=== PATIENT | male | born 1975 | race Caucasian/White ===

== ENCOUNTER → 2017-12-25 08:19 | Outpatient (CLI) | payer OTHER, SELFPAY ==
[2017-12-25 08:45] LABS: Add Manual Diff / Slide Review NO; Eosinophils Percent Auto 3.3 % (2-4); Hematocrit 50.7 % (41-53); Hemoglobin 17.9 g/dL (13.5-17.5); Mean Corpuscular HGB Conc 35.4 % (30-36); Mean Corpuscular Hemoglobin 33.4 PG (26-34); Mean Corpuscular Volume 94.5 fL (80-100); Monocytes Percent Auto 9.6 % (3-14); Neutrophils Absolute Auto 4100 /uL (3000-5900); Neutrophils Percent Auto 62.1 % (50-75); Platelet Count 231 X10^3/uL (150-400); Red Blood Cell Count 5.37 X10^6/uL (4.5-5.9); Red Cell Distribution Width 12.9 % (11.6-14.8); White Blood Cell Count 6.6 X10^3/uL (4.5-11.0)
[2017-12-25 08:51] LABS: Alanine Aminotransferase 59 IU/L (21-72); Albumin 4.8 g/dL (3.5-5.0); Albumin Globulin Ratio 1.6 (1.0-2.8); Alkaline Phosphatase 97 U/L (38-126); Aspartate Aminotransferase 51 IU/L (17-59); BUN Creatinine Ratio 15.6 (6-22); Bilirubin Total 1.4 mg/dL (0.2-1.3); Blood Urea Nitrogen 14 mg/dL (9-20); Calcium 9.4 mg/dL (8.4-10.2); Carbon Dioxide 26 mmol/L (22-32); Chloride 101 mmol/L (98-107); Cholesterol 230 mg/dL (140-199); Estimated Glomerular Filt Rate > 60.0 mL/min (>60); Glucose 97 mg/dL (70-100); HDL Cholesterol 99 mg/dL (40-60); HEMOLYSIS 16 (0-50); LDL Cholesterol Calculated 102 mg/dL (<100); Potassium 4.1 mmol/L (3.4-5.1); Sodium 140 mmol/L (137-145); Total Protein 7.8 g/dL (6.3-8.2); Triglycerides 146 mg/dL (35-150)
== END ==
PROVIDERS: PCP Family Medicine; Visit Provider Family Medicine
DX: Z13.0 Encounter for screening for diseases of the blood and blood-forming organs and certain disorders involving the immune mechanism (principal); Z13.220 Encounter for screening for lipoid disorders; Z13.29 Encounter for screening for other suspected endocrine disorder
CPT/HCPCS: 36415; 80053; 80061; 84443; 85025

== ENCOUNTER → 2018-02-03 13:00 | Outpatient (CLI) | payer OTHER, SELFPAY | PROVIDERS: Family Provider Family Medicine; PCP Family Medicine | DX: Z23 Encounter for immunization (principal) | CPT/HCPCS: 90471; 90686 ==

== ENCOUNTER 2018-06-06 11:21 | Inpatient (IN) | payer OTHER, SELFPAY ==
[2018-06-06] VITALS (10 sets, daily range): BP systolic 108–153; BP diastolic 72–104; PULSE 82–118; RESP 14–24; TEMP 37.3–39.2; O2SAT 98–99; BMI 25.0; BMI 25.9
--- NOTE | 2018-06-06 12:03 | ED.ABDPAIN ---
HPI - Abdominal Pain General Chief Complaint: Abdominal Pain Stated Complaint: LOWER ABD PAIN Time Seen by Provider: 06/06/18 12:03 Source: patient Mode of arrival: ambulatory Limitations: no limitations History of Present Illness HPI narrative: Otherwise healthy 43-year-old male here for evaluation of 3-4 days of worsening abdominal pain. It is lower abdomen right lower quadrant. No prior abdominal surgeries. Has not tried anything for symptoms prior to arrival. No change in bowel habits. No urinary symptoms. Related Data Home Medications Medication Instructions Recorded Confirmed cetirizine [Zyrtec] 10 mg PO DAILY 06/06/18 06/06/18 Previous Rx's Medication Instructions Recorded omeprazole 20 mg tablet,delayed 20 mg PO DAILY #90 tab 12/31/17 release zolpidem 10 mg tablet 10 mg PO HS #30 tab 12/31/17 Allergies Allergy/AdvReac Type Severity Reaction Status Date / Time No Known Drug Allergies Allergy Verified 06/06/18 11:45 Review of Systems Constitutional Denies fever(s) Cardiovascular Denies chest pain and Denies dyspnea Respiratory Denies dyspnea Gastrointestinal Gastrointestinal: Reports abdominal pain, Denies change in bowel habits, Reports nausea and Denies vomiting Genitourinary Denies dysuria Musculoskeletal Denies myalgias and Denies arthralgias Integumentary/Breasts Denies rash Hematologic/Lymphatic Comments: Not on anticoagulation PFSH Medical History Gastroesophageal reflux disease (Chronic) Family History Father Cancer, Onset Age: 65 Social History household members: spouse and children Smoking Status: Never smoker Exam Initial Vital Signs Initial Vital Signs: Vital Signs Temperature 101.4 F H 06/06/18 11:40 Pulse Rate 118 H 06/06/18 11:40 Respiratory Rate 18 06/06/18 11:40 Blood Pressure 153/104 H 06/06/18 11:40 Pulse Oximetry 99 06/06/18 11:40 Const General: cooperative, No comfortable ( uncomfortable.), well developed, well groomed and No acute distress Orientation: alert, awake and oriented x3 HENMT Head: normal to inspection and normocephalic Resp Effort & Inspection: normal respiratory effort Auscultation: clear to auscultation bilaterally Cardio Rate: tachycardic Rhythm: regular rhythm Pulses: radial pulses present GI Inspection: distended Palpation: soft and tender ( Diffuse tenderness however mostly tender suprapubic and right lower quadrant. Tender over McBurney's point) Penis: normal penis Scrotum: scrotum normal Testes: normal and testicular lie normal Skin Lesions: no lesions Rashes: no rashes Neuro General: alert, awake and oriented x3 Extrem General: normal to inspection and capillary refill normal Psych Appearance: grossly normal and well kempt Course Orders Ordered: ED Orders 06/06/18 11:55 Complete Blood Count AUTO DIFF Stat Comprehensive Metabolic Panel Stat Lactate (Lactic Acid) Stat Lipase Stat 06/06/18 12:13 CT abdomen pelvis w con Stat 06/06/18 16:12 Consult to Discharge Planning Routine Education, smoking cessation ONGOING 06/07/18 05:00 Complete Blood Count AUTO DIFF Routine Comprehensive Metabolic Panel Routine Acetaminophen (Tylenol) 650 mg PO Q6HR PRN PRN Reason: Fever > 100.4 Enoxaparin Sodium (Lovenox) 40 mg SUBCUT DAILY LENIN Lactated Ringer's (Lactated Ringers) 1,000 mls @ 150 mls/hr IV CONT LENIN Last Admin: 06/06/18 16:57 Dose: 150 mls/hr Metronidazole (Flagyl) 500 mg in 100 mls @ 100 mls/hr IV Q6H LENIN Morphine Sulfate (Morphine [employer] Weig[employer] Operator) 30 mg in 30 mls @ 0 mls/hr IV Q8HR [facility] Last Admin: 06/06/18 16:58 Dose: 0 mls/hr Piperacillin/Tazobactam/Dextrose (Zosyn) 3.375 gm in 50 mls @ 100 mls/hr IV Q6H LENIN Ketorolac Tromethamine (Toradol) 30 mg IV Q6HR PRN PRN Reason: Pain, Moderate (4-6) Stop: 06/11/18 15:14 Naloxone HCl (Narcan) 0.2 mg IV Q2MIN PRN; Protocol PRN Reason: Opiate Reversal Ondansetron HCl (Zofran) 4 mg IV Q4HR PRN PRN Reason: Nausea And Vomiting Pantoprazole Sodium (Protonix) 40 mg IV DAILY LENIN Discontinued Medications Acetaminophen (Tylenol) 650 mg PO NOW ONE Stop: 06/06/18 12:25 Last Admin: 06/06/18 13:48 Dose: 650 mg Hydromorphone HCl (Dilaudid) 1 mg IV NOW ONE Stop: 06/06/18 13:15 Last Admin: 06/06/18 13:46 Dose: 1 mg Hydromorphone HCl (Dilaudid) 1 mg IV Q4H PRN PRN Reason: Pain, Severe (7-10) Stop: 06/06/18 16:30 Last Admin: 06/06/18 16:08 Dose: 1 mg Sodium Chloride (Normal Saline 0.9%) 1,000 mls @ 150 mls/hr IV CONT LENIN Last Infusion: 06/06/18 13:53 Dose: 0 mls/hr Infusion: 06/06/18 12:23 Dose: 1,000 mls/hr Admin: 06/06/18 12:18 Dose: 150 mls/hr Sodium Chloride (Normal Saline 0.9%) 1,000 mls @ 1,000 mls/hr IV BOLUS ONE Stop: 06/06/18 13:22 Last Infusion: 06/06/18 16:11 Dose: 150 mls/hr Infusion: 06/06/18 14:38 Dose: 150 mls/hr Admin: 06/06/18 13:54 Dose: 1,000 mls/hr Piperacillin/Tazobactam/Dextrose (Zosyn) 3.375 gm in 50 mls @ 100 mls/hr IV NOW ONE Stop: 06/06/18 13:43 Last Infusion: 06/06/18 14:22 Dose: 0 mls/hr Admin: 06/06/18 13:49 Dose: 100 mls/hr Metronidazole (Flagyl) 500 mg in 100 mls @ 100 mls/hr IV NOW ONE Stop: 06/06/18 15:54 Last Infusion: 06/06/18 16:00 Dose: 100 mls/hr Admin: 06/06/18 15:01 Dose: 100 mls/hr Ketorolac Tromethamine (Toradol) 30 mg IV NOW ONE Stop: 06/06/18 16:13 Last Admin: 06/06/18 16:58 Dose: 30 mg Morphine Sulfate (Morphine) 4 mg IV NOW ONE Stop: 06/06/18 12:12 Last Admin: 06/06/18 12:20 Dose: 4 mg Pantoprazole Sodium (Protonix) 40 mg IV NOW ONE Stop: 06/06/18 16:13 Last Admin: 06/06/18 16:58 Dose: 40 mg Vital Signs - 8 hr 06/06/18 11:40 06/06/18 13:46 06/06/18 13:48 Temperature 101.4 F H 102.2 F H 102.2 F H Pulse Rate 118 H Respiratory Rate 18 Blood Pressure 153/104 H Blood Pressure [Left Arm] Pulse Oximetry 99 06/06/18 13:50 06/06/18 14:24 06/06/18 16:09 Temperature 102.2 F H 100.9 F H 99.9 F H Pulse Rate 108 H 98 H Respiratory Rate 24 14 Blood Pressure Blood Pressure [Left Arm] 139/94 H 108/72 Pulse Oximetry 98 98 06/06/18 16:24 Temperature 100.0 F H Pulse Rate 94 H Respiratory Rate 18 Blood Pressure 134/79 Blood Pressure [Left Arm] Pulse Oximetry 98 MDM - Abdominal Pain Lab Data Attestation: I reviewed the patient's lab results. Result diagrams: 06/06/18 11:55 06/06/18 11:55 Lab Results 06/06/18 06/06/18 06/06/18 Range/Units 11:55 11:55 11:55 WBC 15.3 H (4.5-11.0) X10^3/uL RBC 4.84 (4.5-5.9) X10^6/uL Hgb 16.2 (13.5-17.5) g/dL Hct 47.0 (41-53) % MCV 97.3 (80-100) fL MCH 33.6 (26-34) PG MCHC 34.5 (30-36) % RDW 13.1 (11.6-14.8) % Plt Count 243 (150-400) X10^3/uL Neut % (Auto) 84.8 H (50-75) % Lymph % (Auto) 6.2 L (25-40) % [place] % (Auto) 8.5 (3-14) % Eos % (Auto) 0.1 L (2-4) % Baso % (Auto) 0.4 (0-2) % Neut # (Auto) 72614 H (8091-7777) /uL Lymph # (Auto) 900 L (0289-2993) /uL [place] # (Auto) 1300 H (0-900) /uL Eos # (Auto) 0 (0-450) /uL Baso # (Auto) 100 (0-100) /uL Sodium 138 (137-145) mmol/L Potassium 3.7 (3.4-5.1) mmol/L Chloride 100 (98-107) mmol/L Carbon Dioxide 25 (22-32) mmol/L BUN 11 (9-20) mg/dL Creatinine 0.90 (0.66-1.25) mg/dL Estimated GFR > 60.0 (>60) mL/min BUN/Creatinine Ratio 12.2 (6-22) Glucose 129 H (70-100) mg/dL Lactate 1.1 (0.7-2.1) mmol/L Calcium 9.4 (8.4-10.2) mg/dL Total Bilirubin 1.8 H (0.2-1.3) mg/dL AST 54 (17-59) IU/L ALT 53 (21-72) IU/L Alkaline Phosphatase 111 (38-126) U/L Total Protein 8.2 (6.3-8.2) g/dL Albumin 4.7 (3.5-5.0) g/dL Globulin 3.5 (1.7-4.1) g/dL Albumin/Globulin Ratio 1.3 (1.0-2.8) Lipase (23-300) U/L 06/06/18 Range/Units 11:55 WBC (4.5-11.0) X10^3/uL RBC (4.5-5.9) X10^6/uL Hgb (13.5-17.5) g/dL Hct (41-53) % MCV (80-100) fL MCH (26-34) PG MCHC (30-36) % RDW (11.6-14.8) % Plt Count (150-400) X10^3/uL Neut % (Auto) (50-75) % Lymph % (Auto) (25-40) % [place] % (Auto) (3-14) % Eos % (Auto) (2-4) % Baso % (Auto) (0-2) % Neut # (Auto) (8246-0435) /uL Lymph # (Auto) (4001-8851) /uL [place] # (Auto) (0-900) /uL Eos # (Auto) (0-450) /uL Baso # (Auto) (0-100) /uL Sodium (137-145) mmol/L Potassium (3.4-5.1) mmol/L Chloride (98-107) mmol/L Carbon Dioxide (22-32) mmol/L BUN (9-20) mg/dL Creatinine (0.66-1.25) mg/dL Estimated GFR (>60) mL/min BUN/Creatinine Ratio (6-22) Glucose (70-100) mg/dL Lactate (0.7-2.1) mmol/L Calcium (8.4-10.2) mg/dL Total Bilirubin (0.2-1.3) mg/dL AST (17-59) IU/L ALT (21-72) IU/L Alkaline Phosphatase (38-126) U/L Total Protein (6.3-8.2) g/dL Albumin (3.5-5.0) g/dL Globulin (1.7-4.1) g/dL Albumin/Globulin Ratio (1.0-2.8) Lipase 142 (23-300) U/L Imaging Data CT scan - abdomen: Radiologist's impression: PROCEDURE: CT ABDOMEN PELVIS W CON INDICATIONS: RLQ abdominal pain TECHNIQUE: After the administration of intravenous contrast, 5 mm thick sections acquired from the diaphragm to the symphysis. 5 mm coronal and sagittal reformats were acquired. For radiation dose reduction, the following was used: automated exposure control, adjustment of mA and/or kV according to patient size. COMPARISON: None. FINDINGS: Image quality: Excellent. ABDOMEN: Lung bases: A 3 mm pulmonary nodule is present at the right lung base. Lung bases are otherwise clear. Heart size is normal. Solid organs: Liver is normal in size and mildly hypodense suggesting fatty infiltration. Gallbladder is unremarkable. Biliary system is non dilated. Pancreas enhances normally. Spleen is normal in size and enhancement. No adrenal nodules. Kidneys demonstrate normal size and enhancement, without hydronephrosis. Peritoneum and bowel: Bowel loops demonstrate overall normal wall thickness and caliber. The appendix is thin walled and gas filled. Circumferential mucosal thickening is present with pericolonic fat stranding. A solitary diverticulum is present with adjacent pneumoperitoneum suggesting small perforation. Other scattered diverticular outpouchings are present without inflammatory change. Nodes and vessels: No retroperitoneal or mesenteric adenopathy by size criteria. Aorta and inferior vena cava are normal in size. Miscellaneous: No ventral hernias. PELVIS: Genitourinary: Bladder wall thickness is normal. Miscellaneous: No inguinal hernias or adenopathy. Bones: No suspicious bony lesions. No vertebral body compression fractures. IMPRESSION: 1. Acute perforated diverticulitis as above. No fluid collection to suggest abscess. Normal appendix. This finding was discussed with Dr. Vick 1:05 PM on 06/06/18. 2. 3 mm right pulmonary nodule. Please see followup guidelines below. In a low risk patient, no followup needed. In a high risk patient, consider 12 month followup. Note: Fleischner Society criteria for lung nodule followup. Nodule size (mm)Low-risk patientHigh-risk patient?4No follow-up neededFollow-up at 12 mo; if no change, no further follow-up>[id number] CT at 12 mo; if no change, no further follow-up needed.Initial follow-up CT at 6-12 mo, then 18-24 mo if no change. >6-8Initial follow-up CT at 6-12 mo, then 18-24 mo if no change. Initial follow-up CT at 3-6 mo, then 9-12 mo and 24 mo if no change. >8Follow-up CT at 3, 9, 24 mo. Or PET and/or biopsy.Same as for low-risk pts. Non-solid (ground-glass) or partly solid nodules may require longer follow-up to exclude indolent adenocarcinoma. Dictated by: Marta Olmstead M.D. on 06/06/2018 at 13:01 Approved by: Marta Olmstead M.D. on 06/06/2018 at 13:06 [facility] Narrative Medical decision making narrative: patient is tachycardic. Does have an elevated white blood cell count. CT scan does show perforated diverticulum. Normal appendix. He was given Zosyn and Flagyl here in the emergency department. Discussed the case with Dr. Pollock with General surgery who evaluated the patient here in the emergency department. Will admit for further evaluation and treatment. Informed the patient of the decision to admit. He expressed understanding. Also informed him of the incidental finding of the lung nodule. Informed him he needed to follow up with his primary care doctor regarding this. Patient expressed understanding and agreement with Discharge Plan Departure Patient Disposition: Admitted As Inpatient Clinical Impression: Diverticulitis of colon with perforation, Incidental pulmonary nodule Discharge Date/Time: 06/06/18 16:10 Interventions: ED Discharge Assessment Last Done: 06/06/18 16:10 Admit Date/Time: 06/06/18 15:08 Admit Provider: Sahil Pollock
--- NOTE | 2018-06-06 12:13 | DI.CT.S_ITS ---
PROCEDURE: CT ABDOMEN PELVIS W CON INDICATIONS: RLQ abdominal pain TECHNIQUE: After the administration of intravenous contrast, 5 mm thick sections acquired from the diaphragm to the symphysis. 5 mm coronal and sagittal reformats were acquired. For radiation dose reduction, the following was used: automated exposure control, adjustment of mA and/or kV according to patient size. COMPARISON: None. FINDINGS: Image quality: Excellent. ABDOMEN: Lung bases: A 3 mm pulmonary nodule is present at the right lung base. Lung bases are otherwise clear. Heart size is normal. Solid organs: Liver is normal in size and mildly hypodense suggesting fatty infiltration. Gallbladder is unremarkable. Biliary system is non dilated. Pancreas enhances normally. Spleen is normal in size and enhancement. No adrenal nodules. Kidneys demonstrate normal size and enhancement, without hydronephrosis. Peritoneum and bowel: Bowel loops demonstrate overall normal wall thickness and caliber. The appendix is thin walled and gas filled. Circumferential mucosal thickening is present with pericolonic fat stranding. A solitary diverticulum is present with adjacent pneumoperitoneum suggesting small perforation. Other scattered diverticular outpouchings are present without inflammatory change. Nodes and vessels: No retroperitoneal or mesenteric adenopathy by size criteria. Aorta and inferior vena cava are normal in size. Miscellaneous: No ventral hernias. PELVIS: Genitourinary: Bladder wall thickness is normal. Miscellaneous: No inguinal hernias or adenopathy. Bones: No suspicious bony lesions. No vertebral body compression fractures. IMPRESSION: 1. Acute perforated diverticulitis as above. No fluid collection to suggest abscess. Normal appendix. This finding was discussed with Dr. Vick 1:05 PM on 06/06/18. 2. 3 mm right pulmonary nodule. Please see followup guidelines below. In a low risk patient, no followup needed. In a high risk patient, consider 12 month followup. Note: Fleischner Society criteria for lung nodule followup. Nodule size (mm)Low-risk patientHigh-risk patient?4No follow-up neededFollow-up at 12 mo; if no change, no further follow-up>[id number] CT at 12 mo; if no change, no further follow-up needed.Initial follow-up CT at 6-12 mo, then 18-24 mo if no change. >6-8Initial follow-up CT at 6-12 mo, then 18-24 mo if no change. Initial follow-up CT at 3-6 mo, then 9-12 mo and 24 mo if no change. >8Follow-up CT at 3, 9, 24 mo. Or PET and/or biopsy.Same as for low-risk pts. Non-solid (ground-glass) or partly solid nodules may require longer follow-up to exclude indolent adenocarcinoma. Dictated by: Marta Olmstead M.D. on 06/06/2018 at 13:01 Approved by: Marta Olmstead M.D. on 06/06/2018 at 13:06
[2018-06-06] MEDS: SODIUM CHLORIDE 0.9% 1,000 ML 150 ML IV (12:18)
[2018-06-06] MEDS: MORPHINE 4 MG/ML INJ IV (12:20)
[2018-06-06 12:25] LABS: Add Manual Diff / Slide Review NO; Basophils Absolute Auto 100 /uL (0-100); Basophils Percent Auto 0.4 % (0-2); Eosinophils Absolute Auto 0 /uL (0-450); Eosinophils Percent Auto 0.1 % (2-4); Hemoglobin 16.2 g/dL (13.5-17.5); Lymphocytes Absolute Auto 900 /uL (1100-4500); Lymphocytes Percent Auto 6.2 % (25-40); Mean Corpuscular HGB Conc 34.5 % (30-36); Mean Corpuscular Hemoglobin 33.6 PG (26-34); Mean Corpuscular Volume 97.3 fL (80-100); Monocytes Absolute Auto 1300 /uL (0-900); Monocytes Percent Auto 8.5 % (3-14); Neutrophils Absolute Auto 13000 /uL (1500-7000); Neutrophils Percent Auto 84.8 % (50-75); Platelet Count 243 X10^3/uL (150-400); Red Blood Cell Count 4.84 X10^6/uL (4.5-5.9); Red Cell Distribution Width 13.1 % (11.6-14.8); White Blood Cell Count 15.3 X10^3/uL (4.5-11.0)
[2018-06-06 12:30] LABS: Lipase 142 U/L (23-300)
[2018-06-06 12:31] LABS: Alanine Aminotransferase 53 IU/L (21-72); Albumin 4.7 g/dL (3.5-5.0); Albumin Globulin Ratio 1.3 (1.0-2.8); Alkaline Phosphatase 111 U/L (38-126); Aspartate Aminotransferase 54 IU/L (17-59); BUN Creatinine Ratio 12.2 (6-22); Bilirubin Total 1.8 mg/dL (0.2-1.3); Blood Urea Nitrogen 11 mg/dL (9-20); Calcium 9.4 mg/dL (8.4-10.2); Carbon Dioxide 25 mmol/L (22-32); Chloride 100 mmol/L (98-107); Estimated Glomerular Filt Rate > 60.0 mL/min (>60); Globulin 3.5 g/dL (1.7-4.1); Glucose 129 mg/dL (70-100); HEMOLYSIS < 15 (0-50); Lactate (Lactic Acid) 1.1 mmol/L (0.7-2.1); Potassium 3.7 mmol/L (3.4-5.1); Sodium 138 mmol/L (137-145); Total Protein 8.2 g/dL (6.3-8.2)
[2018-06-06] MEDS: HYDROMORPHONE 1 MG INJ IV (13:46)
[2018-06-06] MEDS: ACETAMINOPHEN 325 MG TABLET 650 MG PO ×2 (13:48→23:53)
[2018-06-06] MEDS: PIPERACILLIN-TAZO 3.375 GM/50 ML FROZ.PIGGY IV ×2 (13:49→19:26)
[2018-06-06] MEDS: SODIUM CHLORIDE 0.9% 1,000 ML 1000 ML IV (13:54)
[2018-06-06] MEDS: metroNIDAZOLE 500 MG/100 ML PIGGYBACK 100 MG IV ×2 (15:01→21:24)
--- NOTE | 2018-06-06 15:33 | P.HP_ITS ---
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 He was at work today. He had abdominal pain for the last 4 days but because it became excruciating and he came to the emergency room as he could not stand it anymore. The pain began and remains in his midline in his pelvis suprapubic area. No dysuria or hematuria. No prior history of the symptoms. No nausea or vomiting but he did drink some liquids today. He is a bit anorexic. Has been having very small bowel movements the last 4 days. No blood per rectum. No history of abdominal operations or any cancer of the colon. The patient's father however in his 60s has cancer of the colon. The patient has never had a colonoscopy. The patient does note increased pain with ambulation or movement. The patient's pain has not increased since he has been in the emergency room. It also has not gotten any worse since his CT scan. Patient History Medical History Gastroesophageal reflux disease (Chronic) Family & Social History Safety & Behavioral: Feels Safe in Current Yes Environment Been Physically Hurt or No Threatened By a Person Tobacco & Substance use: Smoking Status Never smoker alcohol intake frequency 0-2 drinks per day Substance Use Type does not use Meds Home Medications Medication Instructions Recorded Confirmed Type omeprazole 20 mg tablet,delayed 20 mg PO DAILY #90 tab 12/31/17 06/06/18 Rx release zolpidem 10 mg tablet 10 mg PO HS #30 tab 12/31/17 06/06/18 Rx Allergies Allergy/AdvReac Type Severity Reaction Status Date / Time No Known Drug Allergies Allergy Verified 06/06/18 11:45 Review of Systems Review of Systems Patient has no double vision pain is eyes earache sore throats no cough cold or asthma. No chest pain or heart problems. No black or bloody bowel movements. No dysuria or hematuria. No seizures or blackouts. No anxiety or depression. His little trouble sleeping. No unusual bruising or bleeding. Exam Vital Signs (past 8 hours): - 06/06/18 11:40 06/06/18 13:46 06/06/18 13:48 Temperature 101.4 F H 102.2 F H 102.2 F H Pulse Rate 118 H Respiratory Rate 18 Blood Pressure 153/104 H Blood Pressure [Left Arm] Pulse Oximetry 99 06/06/18 13:50 06/06/18 14:24 Temperature 102.2 F H 100.9 F H Pulse Rate 108 H Respiratory Rate 24 Blood Pressure Blood Pressure [Left Arm] 139/94 H Pulse Oximetry 98 Oxygen Delivery Method Room Air Narrative Exam Narrative: Co Operative no apparent distress while lying still. Movement does cause some pain. His eyes are nonicteric. Conjunctiva pink. Oral mucosa is pink and moist. Teeth are intact. No open lesions in the mouth or throat. No splits in the lips. Ears without lesion. Nasal septum midline without a visible polyps. His neck is supple. I feel no nodes in the neck or supraclavicular areas. Lungs are clear to auscultation without rales or rhonchi. Heart regular rate and rhythm without murmur gallop. No heave lift or thrill. Abdomen is a bit protuberant and distended. Soft with a voluntary guarding throughout. Most tender in the lower mid abdomen. Extremities without deformity swelling or edema. 2+ tibialis posterior pulses. Patient is alert and oriented x3. Speech rate and content are appropriate. Affect is appropriate. Objective Imaging CT scan - abdomen: My impression: Patient has free air within the mesentery of the sigmoid colon with thickening and stranding in that area. There is no free air elsewhere. There is no abscess. This segment of inflamed bowel is not in contact with the bladder. Remainder the abdomen is fairly unremarkable. Labs Result Diagrams: 06/06/18 11:55 06/06/18 11:55 Labs: Laboratory Results - last 24 hr 06/06/18 06/06/18 06/06/18 11:55 11:55 11:55 WBC 15.3 H RBC 4.84 Hgb 16.2 Hct 47.0 MCV 97.3 MCH 33.6 MCHC 34.5 RDW 13.1 Plt Count 243 Neut % (Auto) 84.8 H Lymph % (Auto) 6.2 L [place] % (Auto) 8.5 Eos % (Auto) 0.1 L Baso % (Auto) 0.4 Neut # (Auto) 75683 H Lymph # (Auto) 900 L [place] # (Auto) 1300 H Eos # (Auto) 0 Baso # (Auto) 100 Sodium 138 Potassium 3.7 Chloride 100 Carbon Dioxide 25 BUN 11 Creatinine 0.90 Estimated GFR > 60.0 BUN/Creatinine Ratio 12.2 Glucose 129 H Lactate 1.1 Calcium 9.4 Total Bilirubin 1.8 H AST 54 ALT 53 Alkaline Phosphatase 111 Total Protein 8.2 Albumin 4.7 Globulin 3.5 Albumin/Globulin Ratio 1.3 Lipase 06/06/18 11:55 WBC RBC Hgb Hct MCV MCH MCHC RDW Plt Count Neut % (Auto) Lymph % (Auto) [place] % (Auto) Eos % (Auto) Baso % (Auto) Neut # (Auto) Lymph # (Auto) [place] # (Auto) Eos # (Auto) Baso # (Auto) Sodium Potassium Chloride Carbon Dioxide BUN Creatinine Estimated GFR BUN/Creatinine Ratio Glucose Lactate Calcium Total Bilirubin AST ALT Alkaline Phosphatase Total Protein Albumin Globulin Albumin/Globulin Ratio Lipase 142 Assessment & Plan Plan: Assessment/Plan Narrative: Fairly healthy patient with a history of gastroesophageal reflux disease who presents with 4 days of abdominal pain and CT findings consistent with perforated diverticulitis. He actually is more tender that I would have expected. His degree of tenderness is more suggestive of a free perforation which he does not appear to have. I am not sure why that is except maybe his delayed getting care for longer than usual. In any event I would recommend bowel rest, broad-spectrum antibiotics which have been ordered, DVT prophylaxis , and repeat labs in the morning. We will also control his pain. I have discussed all of this with him and the potential need for an operation should he either failed to provide improved or decline. I also explained that ultimately he will need a colonoscopy even if he does not come to operation because of his family history because there is also the possibility this could be a perforated malignancy. He appears to understand this. He understands this is a [place] by day evaluation that could change suddenly. All questions were answered.
[2018-06-06] MEDS: HYDROMORPHONE 2 MG INJ 1 MG IV (16:08)
--- NOTE | 2018-06-06 16:45 | PC.NURSE ---
Pt admitted to acute care from ER. Transferred via stretcher/ambulated independently to bed. Alert/oriented. Reports abdominal pain 08/26. Denies nausea. Oriented to room/call light. IV fluids changed per order, IV meds toradol/pantoprazole given and [employer] setup. Using call light appropriately for needs.
[2018-06-06] MEDS: LACTATED RINGERS 1,000 ML 150 ML IV (16:57)
[2018-06-06] MEDS: MORPHINE PCA 30 MG/30 ML PCA.VIAL IV ×2 (16:58→21:23)
[2018-06-06] MEDS: KETOROLAC 60 MG/2 ML VIAL 30 MG IV (16:58)
[2018-06-06] MEDS: PANTOPRAZOLE 40 MG VIAL IV (16:58)
[2018-06-07] VITALS (14 sets, daily range): BP systolic 116–149; BP diastolic 59–101; PULSE 83–100; RESP 16–20; TEMP 36.8–39.2; O2SAT 93–97
[2018-06-07] MEDS: PIPERACILLIN-TAZO 3.375 GM/50 ML FROZ.PIGGY IV ×4 (00:30→18:48)
--- NOTE | 2018-06-07 00:46 | PC.NURSE ---
Temp. 102.5 650 mg. of Tylenol admin. PO with sips of water. Rechecked temp. 102.3, cooling measures applied ice packs & turned thermostat down to 65 degrees. Denies any pain & no C/O nausea, will cont. POC & monitor.
[2018-06-07] MEDS: KETOROLAC 30 MG/ML VIAL IV (01:49)
[2018-06-07] MEDS: LACTATED RINGERS 1,000 ML 150 ML IV (02:34)
[2018-06-07] MEDS: metroNIDAZOLE 500 MG/100 ML PIGGYBACK 100 MG IV ×4 (02:36→20:10)
[2018-06-07] MEDS: MORPHINE PCA 30 MG/30 ML PCA.VIAL IV ×3 (05:21→20:12)
[2018-06-07 05:33] LABS: Add Manual Diff / Slide Review NO; Basophils Absolute Auto 100 /uL (0-100); Basophils Percent Auto 0.7 % (0-2); Eosinophils Absolute Auto 100 /uL (0-450); Eosinophils Percent Auto 0.9 % (2-4); Hematocrit 40.4 % (41-53); Lymphocytes Absolute Auto 1400 /uL (1100-4500); Lymphocytes Percent Auto 9.9 % (25-40); Mean Corpuscular HGB Conc 34.8 % (30-36); Mean Corpuscular Hemoglobin 33.8 PG (26-34); Mean Corpuscular Volume 97.1 fL (80-100); Monocytes Absolute Auto 1300 /uL (0-900); Monocytes Percent Auto 9.7 % (3-14); Neutrophils Absolute Auto 10900 /uL (1500-7000); Neutrophils Percent Auto 78.8 % (50-75); Platelet Count 186 X10^3/uL (150-400); Red Blood Cell Count 4.16 X10^6/uL (4.5-5.9); Red Cell Distribution Width 12.8 % (11.6-14.8); White Blood Cell Count 13.8 X10^3/uL (4.5-11.0)
[2018-06-07 05:40] LABS: Alanine Aminotransferase 39 IU/L (21-72); Albumin 3.7 g/dL (3.5-5.0); Albumin Globulin Ratio 1.2 (1.0-2.8); Alkaline Phosphatase 78 U/L (38-126); Aspartate Aminotransferase 30 IU/L (17-59); BUN Creatinine Ratio 11.1 (6-22); Blood Urea Nitrogen 10 mg/dL (9-20); Calcium 8.4 mg/dL (8.4-10.2); Carbon Dioxide 24 mmol/L (22-32); Chloride 105 mmol/L (98-107); Estimated Glomerular Filt Rate > 60.0 mL/min (>60); Glucose 104 mg/dL (70-100); HEMOLYSIS < 15 (0-50); Potassium 3.7 mmol/L (3.4-5.1); Sodium 139 mmol/L (137-145); Total Protein 6.7 g/dL (6.3-8.2)
[2018-06-07] MEDS: PANTOPRAZOLE 40 MG VIAL IV (10:23)
--- NOTE | 2018-06-07 10:58 | PM.PN.1 ---
Subjective Date Patient Seen: 06/07/18 Time Patient Seen: 10:59 Interval history: The patient is a gentleman admitted with perforated diverticulitis. The perforation is localized into the mesentery. He feels much better today than yesterday. Much of his pain is gone. He is concerned that he still running and intermittent temperature. No vomiting. Is passing flatus. No shortness of breath. Has been ambulating in the room. Exam Vital Signs (past 8 hours): - 06/07/18 05:23 06/07/18 07:35 06/07/18 10:25 Temperature 98.2 F 98.2 F 101.1 F H Pulse Rate 83 83 Respiratory Rate 16 16 Blood Pressure 129/92 H 116/78 Pulse Oximetry 95 95 Oxygen Delivery Method Room Air Narrative Exam Narrative: Co Operative pleasant gentleman in no apparent distress. His lungs clear. No rales or rhonchi. Heart regular rhythm without murmur gallop. A Little tachycardic. His abdomen is still distended but much softer. Voluntary guarding is gone. Vigorous exam reveals tenderness direct and referred to the left lower quadrant suprapubic areas. Objective Labs Result Diagrams: 06/07/18 05:09 06/07/18 05:09 Labs: Laboratory Results - last 24 hr 06/06/18 06/06/18 06/06/18 11:55 11:55 11:55 WBC 15.3 H RBC 4.84 Hgb 16.2 Hct 47.0 MCV 97.3 MCH 33.6 MCHC 34.5 RDW 13.1 Plt Count 243 Neut % (Auto) 84.8 H Lymph % (Auto) 6.2 L Woodruff % (Auto) 8.5 Eos % (Auto) 0.1 L Baso % (Auto) 0.4 Neut # (Auto) 43042 H Lymph # (Auto) 900 L Woodruff # (Auto) 1300 H Eos # (Auto) 0 Baso # (Auto) 100 Sodium 138 Potassium 3.7 Chloride 100 Carbon Dioxide 25 BUN 11 Creatinine 0.90 Estimated GFR > 60.0 BUN/Creatinine Ratio 12.2 Glucose 129 H Lactate 1.1 Calcium 9.4 Total Bilirubin 1.8 H AST 54 ALT 53 Alkaline Phosphatase 111 Total Protein 8.2 Albumin 4.7 Globulin 3.5 Albumin/Globulin Ratio 1.3 Lipase 06/06/18 06/07/18 06/07/18 11:55 05:09 05:09 WBC 13.8 H RBC 4.16 L Hgb 14.0 Hct 40.4 L MCV 97.1 MCH 33.8 MCHC 34.8 RDW 12.8 Plt Count 186 Neut % (Auto) 78.8 H Lymph % (Auto) 9.9 L Woodruff % (Auto) 9.7 Eos % (Auto) 0.9 L Baso % (Auto) 0.7 Neut # (Auto) 18157 H Lymph # (Auto) 1400 Woodruff # (Auto) 1300 H Eos # (Auto) 100 Baso # (Auto) 100 Sodium 139 Potassium 3.7 Chloride 105 Carbon Dioxide 24 BUN 10 Creatinine 0.90 Estimated GFR > 60.0 BUN/Creatinine Ratio 11.1 Glucose 104 H Lactate Calcium 8.4 Total Bilirubin 2.0 H AST 30 ALT 39 Alkaline Phosphatase 78 Total Protein 6.7 Albumin 3.7 Globulin 3.0 Albumin/Globulin Ratio 1.2 Lipase 142 Assessment & Plan Plan: Assessment/Plan Narrative: Patient with perforated diverticulitis with fever. Clinically he has improved markedly from yesterday when he was admitted. He is still having an intermittent temperature elevation to 102. We will continue Tylenol and also Toradol for now. Bilirubin is up a little bit which is probably due to the degree of sepsis. Will switch him to sugar containing fluid. Will continue broad-spectrum antibiotics and DVT prophylaxis with Lovenox. If fever persists it may be an indication of abscess or phlegmon formation in which case I will repeat his CT scan to evaluate. Patient asked that he be get Ambien to help him sleep and so we will prescribed that. He said he did not get any sleep at all last night. He felt that the Toradol alone was giving him great pain relief. Quality VTE Deep Vein Thrombosis/Pulmonary Embolism Present on Admission: No
[2018-06-07] MEDS: DEXTROSE 5%-0.45% NS 1,000 ML 150 ML IV ×2 (11:17→18:33)
[2018-06-07] MEDS: ACETAMINOPHEN 325 MG TABLET 650 MG PO (11:17)
--- NOTE | 2018-06-07 14:02 | CM.DANOTE ---
Patient is a 43 year old male who was admitted on 06/06/18 for Lower Abd Pain. Pt has REG [email or web address] for insurance and his PCP is Dr. Connolly. EMR was reviewed. Per Surgeon, pt currently not needing surgery and pt on bowel rest, IV-Abx, and pain management. SW met bedside with pt and spouse and explained role and they confirmed that they live in [facility] and pt works here at [employer] and pt is Independent with ADL's at baseline and very active and drives. Pt has no hx of HH or SNF and they have local supportive family who can assist at d/c if needed. Pt does not anticipate any SW needs at d/c currently and preference is home if possible. Plan: SW to follow closely for pt progress with bowel rest to determine if pt will require surgery prior to d/c. Preference is home with supportive family when medically stable. FRAN Dey Discharge Planning/Care Management CM Discharge Assessment Start: 06/07/18 13:52 Freq: Status: Active Protocol: Document 06/07/18 13:53 BF (Rec: 06/07/18 14:02 BF [id number]) Discharge Planning Assessment Assigned [employer] Engineer FRAN Espinoza Advance Directives? No Advance Directives on File No History Provided By Patient Significant Other Medical Record Has Patient been admitted in last 30 No days? Prior Living Arrangements House Household Members spouse children Type of transporation used prior to Drives own vehicle admit Comment Independent with ADL's at baseline Independent with ADL's Yes Is patient alert and oriented? Yes Caregiver for Another Yes: young children at home Comment Likely home pending pt's progress with bowel rest Barriers to Discharge No Discharge Plan Home Referrals Initiated None needed Whiteboard Updated in Patient Room with Yes name and ext. # of [employer] Design Engineer Review Status In Process Please Provide Date Initial DC 06/07/18 Assessment Was Performed Next Review Type Continued Stay Review
--- NOTE | 2018-06-07 15:53 | PC.NURSE ---
Patient up ad blanche in room, tolerating well. IV fluids infusing as ordered, maintaining NPO, as ordered. States pain is much improved and managed well on morphine SECURITY LEAD, 23.4mg used for dayshift as documented in JUL. at bedside. Tylenol prn for fever as ordered, patient also using ice pack prn. Continue to monitor, continue with plan of care. Call light within reach.
[2018-06-07] MEDS: ACETAMINOPHEN 325 MG TABLET 975 MG PO ×2 (17:04→23:41)
[2018-06-07] MEDS: ENOXAPARIN 40 MG/0.4 ML SYRINGE SUBCUT (17:05)
--- NOTE | 2018-06-07 22:19 | PC.NURSE ---
PATIENT IS RESTING QUIETLY IN ROOM,PAIN MANAGED WITH TRAVELING PHLEBOTOMIST
[2018-06-07] MEDS: ZOLPIDEM 5 MG TABLET 10 MG PO (23:45)
[2018-06-08] VITALS (21 sets, daily range): BP systolic 99–151; BP diastolic 68–102; PULSE 82–114; RESP 8–19; TEMP 36.6–38.4; O2SAT 91–97
--- NOTE | 2018-06-08 | DI.CT.S_ITS ---
PROCEDURE: CT ABDOMEN PELVIS W CON INDICATIONS: follow uo persistently febrile. Perforated diverticulitis TECHNIQUE: After the administration of oral and intravenous contrast, 5 mm thick sections acquired from the diaphragms to the symphysis. 5 mm thick coronal and sagittal reformats were performed. For radiation dose reduction, the following was used: automated exposure control, adjustment of mA and/or kV according to patient size. COMPARISON: [facility], CT, CT ABDOMEN PELVIS W CON, 06/06/2018, 12:37. FINDINGS: Image quality: Excellent. ABDOMEN: Lung bases: A small 3 mm nodule in the right lower lobe is unchanged compared to the recent prior study. There are increased confluent groundglass opacities within the lung bases, left greater than right. Heart size is normal. A small amount of pneumomediastinum is demonstrated within the visualized lower thorax. Solid organs: There is mild hypoattenuation of the liver consistent with fatty infiltration with relative sparing along the gallbladder fossa. Gallbladder appears within normal limits without calcified gallstones. Biliary system is non-dilated. No peripancreatic fat stranding or fluid collections. There is mild fatty atrophy of the uncinate process. No pancreatic duct dilatation no discrete mass identified. Spleen is normal in size and enhancement. No adrenal nodules. Kidneys are normal in size and enhancement, without hydronephrosis. Peritoneum and bowel: Stomach and small bowel loops are normal in caliber and wall thickness. No evidence of appendicitis. There is colonic diverticulosis with associated inflammatory fat stranding and segmental wall thickening in the sigmoid colon consistent with acute diverticulitis redemonstrated. There is interval decrease in the degree of wall thickening with persistent fat stranding and minimally increased free fluid. However, there is also increase in the amount of free air with a small to moderate amount of pneumoperitoneum demonstrated on the current study. These include a lobulated pericolonic collection adjacent to the sigmoid colon measuring up to approximately 6.5 cm and the posterior dimension by 6 cm in craniocaudal dimension by approximately 1.3 cm in width. This contains mostly gas as well as a small amount of loculated fluid suggestive of a diverticular abscess. In addition, additional foci of free air are demonstrated tracking superiorly in the right kidney and within the mesentery, along the left anterior pararenal space, and in the left posterior pararenal space. This extends into the visualized inferior mediastinum. A few small foci of retroperitoneal free air are also noted likely reflecting extension from the perineum. Nodes and vessels: No retroperitoneal or mesenteric adenopathy. Aorta and inferior vena cava are normal in caliber. Miscellaneous: No ventral hernias. PELVIS: Genitourinary: Bladder wall thickness is normal. Miscellaneous: No inguinal hernias or adenopathy. Bones: No suspicious bony lesions. No vertebral body compression fractures. IMPRESSION: 1. Perforated sigmoid diverticulitis redemonstrated with interval increase in the degree of pneumoperitoneum as well as new pneumomediastinum within the visualized lower thorax. These include loculated extraluminal gas within a lobulated diverticular abscess adjacent to the sigmoid colon. Findings discussed with Dr. Pollock at on 06/08/18 at 11:35 AM. 2. Increased ground glass opacities within the lung bases compatible with atelectasis or developing consolidation. 3. Hepatic steatosis. Dictated by: Jigar Bolden M.D. on 06/08/2018 at 11:29 Approved by: Jigar Bolden M.D. on 06/08/2018 at 11:48
--- NOTE | 2018-06-08 | PATH_ITS ---
[facility] Accession Number: [id number] . 01 Material submitted: . PORTION OF SIGMOID COLON . 02 Diagnosis: Sigmoid Colon, Segmental Resection: 1. Perforated diverticulitis with serositis. 2. Diverticulosis. 3. Negative for dysplasia and malignancy. [facility]/06/10/2018 . 02 Electronically signed: . Linda Hunt MD, Pathologist NPI- [id number] . 01 Gross description: . Received in formalin, labeled portion of sigmoid colon, is an unoriented opened segment of colon (length-9.6 cm, resection margin #1 diameter-2.6 cm, resection margin #2 diameter-2.7 cm) with attached adipose tissue (up to 2.8 cm in depth). Resection margin #1 is received stapled and #2 is opened. The serosa is burgos smooth and shiny. The mucosa is burgos with compact distorted folds containing diffuse diverticula. The resection margins are inked black. Section code: (A1) resection margin #1, longitudinal underwriting service representative sections; (A2) resection margin #2, longitudinal underwriting service representative sections; (A3-A8) underwriting service representative serial sections submitted from resection margin #1 to #2. ([id number]) /[facility] . 02 Pathologist provided ICD-10: K57.20 . 02 CPT . 819790 Performed at: 01 [facility] [address] [id number] MD Jigar Heaton MD Phone: [phone] Performed at: 02 [facility] [address] [place], [place] [id number] MD Linda Hunt MD Phone: [phone]
[2018-06-08] MEDS: DEXTROSE 5%-0.45% NS 1,000 ML 150 ML IV (01:27)
[2018-06-08] MEDS: PIPERACILLIN-TAZO 3.375 GM/50 ML FROZ.PIGGY IV ×4 (01:30→18:55)
[2018-06-08] MEDS: metroNIDAZOLE 500 MG/100 ML PIGGYBACK 100 MG IV ×4 (03:32→21:50)
[2018-06-08 05:41] LABS: Add Manual Diff / Slide Review NO; Basophils Absolute Auto 0 /uL (0-100); Basophils Percent Auto 0.4 % (0-2); Eosinophils Absolute Auto 200 /uL (0-450); Eosinophils Percent Auto 1.3 % (2-4); Hematocrit 38.5 % (41-53); Hemoglobin 13.4 g/dL (13.5-17.5); Lymphocytes Absolute Auto 1000 /uL (1100-4500); Lymphocytes Percent Auto 8.7 % (25-40); Mean Corpuscular HGB Conc 34.9 % (30-36); Mean Corpuscular Hemoglobin 33.8 PG (26-34); Mean Corpuscular Volume 96.8 fL (80-100); Monocytes Absolute Auto 900 /uL (0-900); Monocytes Percent Auto 7.7 % (3-14); Neutrophils Absolute Auto 9400 /uL (1500-7000); Neutrophils Percent Auto 81.9 % (50-75); Platelet Count 184 X10^3/uL (150-400); Red Blood Cell Count 3.98 X10^6/uL (4.5-5.9); Red Cell Distribution Width 12.6 % (11.6-14.8); White Blood Cell Count 11.5 X10^3/uL (4.5-11.0)
[2018-06-08 05:56] LABS: Alanine Aminotransferase 29 IU/L (21-72); Albumin 3.3 g/dL (3.5-5.0); Albumin Globulin Ratio 1.1 (1.0-2.8); Alkaline Phosphatase 72 U/L (38-126); Aspartate Aminotransferase 28 IU/L (17-59); Bilirubin Total 1.4 mg/dL (0.2-1.3); Bilirubin Unconjugated 0.7 mg/dL (0.0-1.1); HEMOLYSIS 43 (0-50); Total Protein 6.3 g/dL (6.3-8.2)
[2018-06-08 06:13] LABS: Procalcitonin 13.37 ng/mL (<0.5)
[2018-06-08] MEDS: MORPHINE PCA 30 MG/30 ML PCA.VIAL IV ×3 (06:51→21:53)
[2018-06-08] MEDS: ACETAMINOPHEN 325 MG TABLET 975 MG PO (07:47)
[2018-06-08] MEDS: ONDANSETRON 4 MG/2 ML INJ IV (07:49)
[2018-06-08] MEDS: ENOXAPARIN 40 MG/0.4 ML SYRINGE SUBCUT (07:52)
[2018-06-08] MEDS: PANTOPRAZOLE 40 MG VIAL IV (07:53)
--- NOTE | 2018-06-08 12:06 | PM.PREOP ---
Pre-operative Note Interval Note History & Physical reviewed/Exam performed by Physician: Yes Changes to H&P: Yes H&P completed within 30 days and has changed as indicated here:: Patient had a CT scan due to persistent fevers. This showed a large amount of air tracking in the retroperitoneum into the upper abdomen and periesophageal area. He will be taken emergently the operating room for resection. I have discussed the operation with him. We will get in laparoscopically mobilized this colon. I would probably have to open him to complete the operation based on prior experience. I may end up having to do an end colostomy or a loop ileostomy depending on the findings in the operating room and whether I feel like it is safe to so him back together. That is to complete a colon colon anastomosis. Risks of bleeding, infection, anastomotic leak, all discussed with him. Injury to the ureter also discussed. All questions answered. Due to persistent leak I do not believe this warrants delay.
[2018-06-08] MEDS: LACTATED RINGERS 1,000 ML 42 ML IV ×2 (12:33→16:04)
--- NOTE | 2018-06-08 13:28 | SUR.OPER ---
Lithotomy on padded OR bed, head on pillow, arms tucked at sides with gel padding. Legs secured in padded yellow fins stirrups.
[2018-06-08] MEDS: BUPIVACAINE 0.5% (PF) VIAL 30 ML INJ (14:26)
--- NOTE | 2018-06-08 15:25 | PC.NURSE ---
Patient was picked up by pre-op and taken to surgery urgently today. Patient was able to contact his prior to going to surgery. Belongings sent down to ICU. Report given to Asmita NAVARRO in ICU.
[2018-06-08] MEDS: ACETAMINOPHEN IV 1,000 MG/100 ML VIAL 400 MG IV (18:03)
[2018-06-08] MEDS: HYDROMORPHONE 2 MG INJ 0.5 MG IV ×5 (18:28→19:28)
--- NOTE | 2018-06-08 18:33 | PM.OP.1 ---
Operative Date/Time/Diagnoses Date of procedure: 06/08/18 Time of procedure: 18:33 Pre-op diagnosis: Perforated diverticulitis. Post-op diagnosis: same Procedure & Clinicians Procedure: Laparoscopic-assisted sigmoid colectomy with colo colo anastomosis and diverting loop ileostomy Same procedure as scheduled: Yes Indications: Perforated diverticulitis with increasing retroperitoneal air (extra colonic air) on repeat CT scan. Surgeon: Sahil Pollock Employee Benefits Director: Abilio Alejandre Click Yes if Unassisted: No Anesthesia Type: General Operative Notes Findings: Short segment of sigmoid with markedly thickened mesentery. Resection done staying very carefully away from the ureter. Due to the emergent nature of this operation patient did not receive oral antibiotics Closure Type: primary Specimen(s): other (Portion of sigmoid colon) Implants & Drains: None Applied: catheter (fleming) Estimated Blood Loss (mL): 100 Blood products transfused: none Procedure in detail: The patient was taken the operating room and placed supine the table. He underwent general endotracheal anesthesia. He was prepped and draped in the usual fashion. A catheter was placed prior to prepping. Small incision was made beneath the umbilicus and carried down under direct vision the peritoneal cavity. Stay sutures of 0 Vicryl were placed in the fascia. An Mono cannula was inserted. The abdomen was insufflated. Two additional ports were placed 1 in left lower quadrant 1 in the upper mid abdomen. A began dissecting along the attachments of the left colon freeing the colon to the level of the splenic flexure and into the transverse colon. One additional port had to be placed in the upper abdomen for retraction. The sigmoid had fairly dense adhesions to the lateral abdominal wall. This was in the area of the diverticulitis. When I reached a point where felt I had mobilized the colon adequately and could not safely continue dissection due to inflammation we removed the ports. Incision made from the umbilicus down to the suprapubic area. Exposure was gained. The area of the involved colon was as obvious. It was located in the midline and to the left of midline. I dissected the attachments of the colon from the lateral abdominal wall using blunt and sharp dissection. Identified an area of soft normal appearing colon just proximal to the inflamed area. The mesentery was opened and the intestine divided at this level with the AARON. I then dissected the mesentery inferiorly until I reached a point above the peritoneal reflexion where the colon was soft and normal. The dissection of the mesentery took place very close to the colon wall and I took this very slowly to prevent any injury to the ureter. A TA stapling device was fired across the colon distal and specimen was removed in open. There was no visible tumor. The colon appeared to have been mobilized adequately. I then created a proximal side to distal and colon anastomosis in 2 layers with an outer seromuscular 3 0 silk and an inner 3 0 Vicryl running [place] suture. The anastomosis was leak tested , there was a very small air leak which identified and sutured closed with seromuscular silks. The anastomosis was leak tested again and appeared to be intact without a leak. The pelvis was irrigated and suctioned free of fluid identified a point in the terminal ileum that easily came up to the abdominal wall at an appropriate location. A circular incision was made in the skin and carried down to the rectus. A cruciate incision was made in the anterior rectus and transverse incision in the posterior rectus that was dilated to 2 finger breaths. The terminal ileum loop was brought up through this opening. The fascia was closed with a running 1. Maxon double stranded suture. Occasional 1 Vicryl sutures were placed in a [id number] fashion along the fascial edge. The subcu was irrigated and the space eliminated with interrupted 3 0 Vicryl sh. Skin was closed with idania. The ostomy was then matured over a rigid red catheter using 3 0 Vicryl sutures in an interrupted fashion. A bag was placed and a dressing applied. The remaining 3 laparoscopic incisions were closed with interrupted 4 0 Vicryl stitch in sutures and Steri-Strips. The patient was awakened extubated and taken the recovery area in good condition. There were no apparent complications. Because the patient had received Lovenox we chose not to place a epidural catheter for pain control. Complications: none Condition: stable Disposition: PACU Plan for aftercare: To the floor
--- NOTE | 2018-06-08 18:44 | SUR.PHASEI ---
Stoma dark, beefy red, no output. Bag in place. Abd mikeg cdi.
--- NOTE | 2018-06-08 18:44 | SUR.PHASEI ---
Denied abd pain but c/o need to void. Discussed catheter present multiple times.
--- NOTE | 2018-06-08 19:26 | SUR.PHASEI ---
Report to Asmita.
--- NOTE | 2018-06-08 20:04 | SUR.PHASEI ---
Pt reporting abd pain 8/10, dozing intermittently. O2 sat mid 90s 2lnc. Pt transferred to ICU with O2, spouse present. Report to Asmita. Abd drsg cdi, scant dark pink drainage to middle bandaid, others CDI. No output to ileostomy. Schreiber patent. IV saline locked x2.
[2018-06-08] MEDS: KETOROLAC 30 MG/ML VIAL IV (20:33)
--- NOTE | 2018-06-08 21:14 | PC.NURSE ---
kenny note pt received from PACU with pain 8/10. Morphine CEMENT GUN OPERATOR set up with 2 mg loading dose given. Also gave 30 mg Toradol. Pain level now 6/10, pt able to take deep breath.
[2018-06-08] MEDS: LACTATED RINGERS 1,000 ML 125 ML IV (21:49)
[2018-06-09] VITALS (11 sets, daily range): BP systolic 128–143; BP diastolic 78–101; PULSE 71–87; RESP 15–20; TEMP 36.4–37.4; O2SAT 91–96
[2018-06-09] MEDS: PIPERACILLIN-TAZO 3.375 GM/50 ML FROZ.PIGGY IV ×4 (00:57→18:51)
[2018-06-09] MEDS: metroNIDAZOLE 500 MG/100 ML PIGGYBACK 100 MG IV ×4 (02:55→21:00)
[2018-06-09 05:34] LABS: Add Manual Diff / Slide Review NO; Basophils Absolute Auto 0 /uL (0-100); Basophils Percent Auto 0.1 % (0-2); Eosinophils Absolute Auto 0 /uL (0-450); Hematocrit 37.9 % (41-53); Lymphocytes Absolute Auto 500 /uL (1100-4500); Lymphocytes Percent Auto 4.1 % (25-40); Mean Corpuscular HGB Conc 34.2 % (30-36); Mean Corpuscular Hemoglobin 33.1 PG (26-34); Mean Corpuscular Volume 96.8 fL (80-100); Monocytes Absolute Auto 600 /uL (0-900); Monocytes Percent Auto 5.3 % (3-14); Neutrophils Absolute Auto 10700 /uL (1500-7000); Neutrophils Percent Auto 90.5 % (50-75); Platelet Count 214 X10^3/uL (150-400); Red Blood Cell Count 3.92 X10^6/uL (4.5-5.9); Red Cell Distribution Width 12.8 % (11.6-14.8); White Blood Cell Count 11.8 X10^3/uL (4.5-11.0)
[2018-06-09 05:41] LABS: Alanine Aminotransferase 28 IU/L (21-72); Albumin 3.3 g/dL (3.5-5.0); Albumin Globulin Ratio 1.1 (1.0-2.8); Alkaline Phosphatase 65 U/L (38-126); Aspartate Aminotransferase 21 IU/L (17-59); BUN Creatinine Ratio 12.5 (6-22); Blood Urea Nitrogen 10 mg/dL (9-20); Carbon Dioxide 26 mmol/L (22-32); Chloride 99 mmol/L (98-107); Estimated Glomerular Filt Rate > 60.0 mL/min (>60); Glucose 138 mg/dL (70-100); HEMOLYSIS < 15 (0-50); Potassium 3.6 mmol/L (3.4-5.1); Sodium 136 mmol/L (137-145); Total Protein 6.3 g/dL (6.3-8.2)
[2018-06-09] MEDS: MORPHINE PCA 30 MG/30 ML PCA.VIAL IV ×3 (06:17→22:55)
[2018-06-09] MEDS: LACTATED RINGERS 1,000 ML 125 ML IV ×2 (06:39→17:36)
[2018-06-09] MEDS: KETOROLAC 30 MG/ML VIAL IV ×2 (08:19→14:32)
[2018-06-09] MEDS: ENOXAPARIN 40 MG/0.4 ML SYRINGE SUBCUT (08:19)
[2018-06-09] MEDS: PANTOPRAZOLE 40 MG VIAL IV (08:19)
[2018-06-09] MEDS: ZOLPIDEM 5 MG TABLET 10 MG PO (23:33)
[2018-06-10] VITALS (12 sets, daily range): BP systolic 129–147; BP diastolic 86–102; PULSE 64–84; RESP 16–19; TEMP 36.7–37.1; O2SAT 93–97
[2018-06-10] MEDS: PIPERACILLIN-TAZO 3.375 GM/50 ML FROZ.PIGGY IV ×4 (01:04→19:03)
[2018-06-10] MEDS: metroNIDAZOLE 500 MG/100 ML PIGGYBACK 100 MG IV ×4 (02:48→21:18)
[2018-06-10] MEDS: LACTATED RINGERS 1,000 ML 125 ML IV ×2 (03:00→12:51)
[2018-06-10] MEDS: ZOLPIDEM 5 MG TABLET 10 MG PO ×2 (04:40→23:57)
[2018-06-10] MEDS: MORPHINE PCA 30 MG/30 ML PCA.VIAL 17.3 MG IV (06:24)
--- NOTE | 2018-06-10 06:41 | PC.NURSE ---
Wound Ostomy Nurse Note-Late Entry Saw Mr. Waldrop on 06/09/18. He was awake in bed with his at his side. Mr. Waldrop just got back to bed as he was up ambulating in ICU area. He is very alert and I began reviewing ostomy care with him and his whom is also a practicing nurse for a drug rehab clinic in [place]. Mr. Arora's appliance was coming off and he had a urinary pouch so I changed his pouching appliance. His stoma if moist,swollen and had some old blood clots which were easily wiped away. The stoma is deep red in color. The red forest bridge is intact and the sutures around the stoma are intact. Mr. Waldrop does have an area of induration at the 8-9:00 position and a bruise is forming. It is painful to touch. I did notify his day nurse and Dr. Pollock. Otherwise his hyun-stomal skin is intact. Mr. Waldrop is not producing gas but there was about 5 cc of serosanguenous drainage in the pouch. He has not been advanced in his diet and is only using dried mouth swabs. His abdominal incisional dressing is dry and I reinforced the corner that was covering the ostomy wafer. I gave Mr. Waldrop the [employer] New Patient Guide as well as the Oleksandr New Ileostomy Guide and Ileostomy Food Guide. I discussed food restrictions to prevent a food blockage and the importance of increased hydration. I briefly discussed the ileostomy anatomy and encouraged them to start to review the teaching materials I have left with him and reinforced that I will be teaching him daily how to care for him stoma. I will also make an appointment with his to be here during at least one session so she will learn how to change the appliance on the model and understand how to care for the ileostomy. I will return tomorrow to continue teaching.
[2018-06-10] MEDS: KETOROLAC 30 MG/ML VIAL IV ×2 (06:50→12:51)
[2018-06-10] MEDS: PANTOPRAZOLE 40 MG VIAL IV (08:43)
[2018-06-10] MEDS: ENOXAPARIN 40 MG/0.4 ML SYRINGE SUBCUT (08:43)
[2018-06-10] MEDS: MORPHINE PCA 30 MG/30 ML PCA.VIAL IV ×2 (14:31→21:19)
--- NOTE | 2018-06-10 14:49 | PC.NURSE ---
Transfer Note Patient transferred to room 229 via wheelchair with all belongings including cell phone, electronic tablet, and clothing.
[2018-06-10] MEDS: DEXTROSE 5%-0.45% NS 1,000 ML 100 ML IV (17:32)
--- NOTE | 2018-06-10 17:32 | PC.NURSE ---
Wound Ostomy Nurse Note Nelson sitting up in chair awake. Called Dr. Pollock to so he could join me for this visit. Dr. Pollock arrived and he removed the mid-line surgical dressing. Jeni are intact without any drainage. I removed the stoma appliance. The stoma is moist deep red. There is bruising in the 8-9:00 position, with some induration but not painful to touch. The bridge is still in place. I applied a 45mm Convatec moldable wafer with an adaptor and clear, non-filter pouch. Nelson is passing gas and today he burped the pouch and actually emptied the pouch. We reviewed on the stoma model how to measure the stoma, apply a two piece moldable appliance, apply a cut to fit one piece appliance as well as he used stoma paste and an erin ring to fit around a retracted stoma on the model. I showed him how to do the crusting technique as well as discussed a food blockage and how to treat a food blockage. We reviewed sick days and dehydration. I will return tomorrow around 5 pm to review teaching with his . I feel confident that Nelson will be able to manage his ostomy needs without having home health. I will review his skills tomorrow and will also assess his 's skills and confidence.
[2018-06-10] MEDS: METOCLOPRAMIDE 10 MG/2 ML INJ 5 MG IV (21:18)
--- NOTE | 2018-06-10 21:34 | PM.PNPO.1 ---
Subjective Date Patient Seen: 06/10/18 Time Patient Seen: 15:34 Interval history: Patient seen earlier today and again this afternoon with the ostomy nurse. He is feeling pretty well. He said he is passing flatus through the ostomy. He would like to have something like putting to eat. He said his stomach is a little upset. Exam Vital Signs (past 8 hours): - 06/10/18 16:24 06/10/18 17:00 06/10/18 19:10 Temperature 98.2 F Pulse Rate 74 Respiratory Rate 19 Blood Pressure 144/97 H Pulse Oximetry 97 97 95 Oxygen Delivery Method Room Air Oxygen Flow Rate 0 Narrative Exam Narrative: Lungs are clear to auscultation. Good air movement. Heart regular rate and rhythm without murmur gallop. Abdomen he looks distended but this is really his body habitus. He had a lot of intraperitoneal fat. The wounds are all intact. No cellulitis. Ostomy is a little dusky in places. But clearly viable. He has begun to put succus out. Objective Labs Result Diagrams: 06/09/18 05:01 06/09/18 05:01 Assessment & Plan Post-op Postoperative Procedures Operation Date: 06/08/18 14:30 Actual Procedures Side Surgeon p Laparoscopically Assisted Colectomy with colo-colo anastamosis Sahil Pollock MD s Colon Resection, Diverting loop Ileostomy Sahil Pollock MD Postoperative status: doing well Postoperative plan narrative: Will start to advance his diet. Continue DVT prophylaxis. Continue instructions regarding his ostomy. Quality VTE Deep Vein Thrombosis/Pulmonary Embolism Present on Admission: No
[2018-06-11] VITALS (14 sets, daily range): BP systolic 134–150; BP diastolic 85–109; PULSE 72–81; RESP 16–19; TEMP 36.5–37.3; O2SAT 94–99
[2018-06-11] MEDS: PIPERACILLIN-TAZO 3.375 GM/50 ML FROZ.PIGGY IV ×4 (01:12→19:36)
[2018-06-11] MEDS: metroNIDAZOLE 500 MG/100 ML PIGGYBACK 100 MG IV ×4 (03:00→21:03)
--- NOTE | 2018-06-11 03:40 | PC.NURSE ---
Patient requested ambien. Slept well until 0330 when he woke to void. Clear UOP, but tea colored. WEED CUTTER effective for pain at this time.
[2018-06-11 05:50] LABS: Add Manual Diff / Slide Review NO; Basophils Absolute Auto 0 /uL (0-100); Basophils Percent Auto 0.4 % (0-2); Eosinophils Absolute Auto 200 /uL (0-450); Hematocrit 37.9 % (41-53); Lymphocytes Absolute Auto 1100 /uL (1100-4500); Lymphocytes Percent Auto 15.8 % (25-40); Mean Corpuscular HGB Conc 34.3 % (30-36); Mean Corpuscular Hemoglobin 33.4 PG (26-34); Mean Corpuscular Volume 97.2 fL (80-100); Monocytes Absolute Auto 900 /uL (0-900); Monocytes Percent Auto 12.9 % (3-14); Neutrophils Absolute Auto 4700 /uL (1500-7000); Neutrophils Percent Auto 67.9 % (50-75); Platelet Count 252 X10^3/uL (150-400)
[2018-06-11 05:52] LABS: Alanine Aminotransferase 35 IU/L (21-72); Albumin 3.1 g/dL (3.5-5.0); Albumin Globulin Ratio 1.1 (1.0-2.8); Alkaline Phosphatase 76 U/L (38-126); Aspartate Aminotransferase 41 IU/L (17-59); BUN Creatinine Ratio 18.8 (6-22); Bilirubin Total 0.7 mg/dL (0.2-1.3); Blood Urea Nitrogen 15 mg/dL (9-20); Calcium 7.8 mg/dL (8.4-10.2); Carbon Dioxide 30 mmol/L (22-32); Chloride 98 mmol/L (98-107); Estimated Glomerular Filt Rate > 60.0 mL/min (>60); Globulin 2.9 g/dL (1.7-4.1); Glucose 109 mg/dL (70-100); HEMOLYSIS < 15 (0-50); Potassium 2.8 mmol/L (3.4-5.1); Sodium 136 mmol/L (137-145)
[2018-06-11] MEDS: METOCLOPRAMIDE 10 MG/2 ML INJ 5 MG IV ×3 (06:40→22:15)
[2018-06-11] MEDS: DEXTROSE 5%-0.45% NS 1,000 ML 100 ML IV ×2 (06:43→07:31)
[2018-06-11] MEDS: MORPHINE PCA 30 MG/30 ML PCA.VIAL IV ×3 (06:44→22:16)
[2018-06-11] MEDS: PANTOPRAZOLE 40 MG VIAL IV (10:35)
[2018-06-11] MEDS: ENOXAPARIN 40 MG/0.4 ML SYRINGE SUBCUT (10:36)
[2018-06-11] MEDS: POTASSIUM CHLORIDE 40 MEQ in SODIUM CHLORIDE 0.9% 500 ML 130 ML IV (14:00)
--- NOTE | 2018-06-11 15:20 | CM.DPNOTE ---
Spoke w/ Gemma Frias, Ostomy and Wound care Nurse. She will be visiting pt and spouse this evening to provide teaching to spouse, she is an RN. Gemma feels pt will DC home w/no barriers and he and spouse can handle new ostomy care, no need for HH at this time. Following closely in case DC needs or concerns arise. JW
--- NOTE | 2018-06-11 17:08 | PM.PNPO.1 ---
Subjective Date Patient Seen: 06/11/18 Time Patient Seen: 17:08 Interval history: The patient feels pretty well today. He did take a shower but had some leaking from his ostomy. Has been ambulating. Peeing a lot. Urine is pretty light yellow. Exam Vital Signs (past 8 hours): - 06/11/18 09:15 06/11/18 11:20 06/11/18 14:32 Temperature 98.0 F Pulse Rate 79 Respiratory Rate 18 Blood Pressure 136/93 H Pulse Oximetry 95 96 96 06/11/18 16:48 Temperature 98.1 F Pulse Rate 81 Respiratory Rate 19 Blood Pressure 150/89 H Pulse Oximetry 96 Oxygen Delivery Method Room Air Oxygen Flow Rate 0 Narrative Exam Narrative: Operative. Breathing fine. Abdomen a little distended looking. Ostomy is viable. Objective Labs Result Diagrams: 06/11/18 05:09 06/11/18 05:09 Labs: Laboratory Results - last 24 hr 06/11/18 06/11/18 05:09 05:09 WBC 7.0 RBC 3.90 L Hgb 13.0 L Hct 37.9 L MCV 97.2 MCH 33.4 MCHC 34.3 RDW 13.0 Plt Count 252 Neut % (Auto) 67.9 Lymph % (Auto) 15.8 L [place] % (Auto) 12.9 Eos % (Auto) 3.0 Baso % (Auto) 0.4 Neut # (Auto) 4700 Lymph # (Auto) 1100 [place] # (Auto) 900 Eos # (Auto) 200 Baso # (Auto) 0 Sodium 136 L Potassium 2.8 L Chloride 98 Carbon Dioxide 30 BUN 15 Creatinine 0.80 Estimated GFR > 60.0 BUN/Creatinine Ratio 18.8 Glucose 109 H Calcium 7.8 L Total Bilirubin 0.7 AST 41 ALT 35 Alkaline Phosphatase 76 Total Protein 6.0 L Albumin 3.1 L Globulin 2.9 Albumin/Globulin Ratio 1.1 Assessment & Plan Post-op Postoperative Procedures Operation Date: 06/08/18 14:30 Actual Procedures Side Surgeon p Laparoscopically Assisted Colectomy with colo-colo anastamosis Sahil Pollock MD s Colon Resection, Diverting loop Ileostomy Sahil Pollock MD Postoperative status: doing well Postoperative status narrative: Potassium is low. Replacing with IV and p.o.. Decreasing IV fluids. Advancing diet. Check procalcitonin. Quality VTE Deep Vein Thrombosis/Pulmonary Embolism Present on Admission: No
--- NOTE | 2018-06-11 17:11 | P.PN_ITS ---
Subjective Date Patient Seen: 06/11/18 Time Patient Seen: 17:08 Interval history: The patient feels pretty well today. He did take a shower but had some leaking from his ostomy. Has been ambulating. Peeing a lot. Urine is pretty light yellow. Exam Vital Signs (past 8 hours): - 06/11/18 09:15 06/11/18 11:20 06/11/18 14:32 Temperature 98.0 F Pulse Rate 79 Respiratory Rate 18 Blood Pressure 136/93 H Pulse Oximetry 95 96 96 06/11/18 16:48 Temperature 98.1 F Pulse Rate 81 Respiratory Rate 19 Blood Pressure 150/89 H Pulse Oximetry 96 Oxygen Delivery Method Room Air Oxygen Flow Rate 0 Narrative Exam Narrative: Operative. Breathing fine. Abdomen a little distended looking. Ostomy is viable. Objective Labs Result Diagrams: 06/11/18 05:09 06/11/18 05:09 Labs: Laboratory Results - last 24 hr 06/11/18 06/11/18 05:09 05:09 WBC 7.0 RBC 3.90 L Hgb 13.0 L Hct 37.9 L MCV 97.2 MCH 33.4 MCHC 34.3 RDW 13.0 Plt Count 252 Neut % (Auto) 67.9 Lymph % (Auto) 15.8 L [place] % (Auto) 12.9 Eos % (Auto) 3.0 Baso % (Auto) 0.4 Neut # (Auto) 4700 Lymph # (Auto) 1100 [place] # (Auto) 900 Eos # (Auto) 200 Baso # (Auto) 0 Sodium 136 L Potassium 2.8 L Chloride 98 Carbon Dioxide 30 BUN 15 Creatinine 0.80 Estimated GFR > 60.0 BUN/Creatinine Ratio 18.8 Glucose 109 H Calcium 7.8 L Total Bilirubin 0.7 AST 41 ALT 35 Alkaline Phosphatase 76 Total Protein 6.0 L Albumin 3.1 L Globulin 2.9 Albumin/Globulin Ratio 1.1 Assessment & Plan Post-op Postoperative Procedures Operation Date: 06/08/18 14:30 Actual Procedures Side Surgeon p Laparoscopically Assisted Colectomy with colo-colo anastamosis Sahil Pollock MD s Colon Resection, Diverting loop Ileostomy Sahil Pollock MD Postoperative status: doing well Postoperative status narrative: Potassium is low. Replacing with IV and p.o.. Decreasing IV fluids. Advancing diet. Check procalcitonin. Quality VTE Deep Vein Thrombosis/Pulmonary Embolism Present on Admission: No
--- NOTE | 2018-06-11 18:13 | PC.NURSE ---
Wound Ostomy Nursing Note Nelson awake in bed with his at his side. His Zoey is here to learn how to place an appliance on the stoma model and learn about stomal care. She correctly applied a [employer] moldable two piece pouching appliance and a one piece cut to fit. We reviewed and did the crusting technique and reviewed stoma powder and paste and erin rings. We reviewed the stoma anatomy as well as how to prevent a food blockage and what to do if he has a food blockage or the flu. Zoey verbalized understanding and demonstrated proper technique. Nelson's stoma is moist, beefy red, slightly edematous. The bridge is in place. I will be back tomorrow to help Nelson change his appliance. Nelson and Zoey feel that they need a home health nurse to continue teaching and care when he is discharged. I will speak to care management tomorrow.
[2018-06-11] MEDS: MAG HYDROX/ALUM/SIMETH 30 ML UDC PO (20:09)
[2018-06-12] VITALS (11 sets, daily range): BP systolic 132–146; BP diastolic 86–106; PULSE 75–90; RESP 16–18; TEMP 36.8–37.3; O2SAT 94–98
[2018-06-12] MEDS: PIPERACILLIN-TAZO 3.375 GM/50 ML FROZ.PIGGY IV ×4 (00:43→20:22)
[2018-06-12] MEDS: ZOLPIDEM 5 MG TABLET 10 MG PO (03:09)
[2018-06-12] MEDS: metroNIDAZOLE 500 MG/100 ML PIGGYBACK 100 MG IV ×4 (03:09→21:06)
[2018-06-12 06:03] LABS: Add Manual Diff / Slide Review NO; BUN Creatinine Ratio 11.4 (6-22); Basophils Absolute Auto 0 /uL (0-100); Basophils Percent Auto 0.3 % (0-2); Blood Urea Nitrogen 8 mg/dL (9-20); Carbon Dioxide 29 mmol/L (22-32); Chloride 100 mmol/L (98-107); Eosinophils Absolute Auto 200 /uL (0-450); Eosinophils Percent Auto 2.5 % (2-4); Estimated Glomerular Filt Rate > 60.0 mL/min (>60); Glucose 104 mg/dL (70-100); HEMOLYSIS < 15 (0-50); Hematocrit 37.4 % (41-53); Hemoglobin 12.8 g/dL (13.5-17.5); Lymphocytes Absolute Auto 1100 /uL (1100-4500); Lymphocytes Percent Auto 11.1 % (25-40); Magnesium 2.2 mg/dL (1.6-2.3); Mean Corpuscular HGB Conc 34.3 % (30-36); Mean Corpuscular Hemoglobin 33.3 PG (26-34); Monocytes Absolute Auto 1000 /uL (0-900); Monocytes Percent Auto 10.6 % (3-14); Neutrophils Absolute Auto 7300 /uL (1500-7000); Neutrophils Percent Auto 75.5 % (50-75); Platelet Count 273 X10^3/uL (150-400); Potassium 3.6 mmol/L (3.4-5.1); Red Blood Cell Count 3.85 X10^6/uL (4.5-5.9); Red Cell Distribution Width 13.2 % (11.6-14.8); Sodium 137 mmol/L (137-145); White Blood Cell Count 9.6 X10^3/uL (4.5-11.0)
[2018-06-12 06:15] LABS: Procalcitonin 1.58 ng/mL (<0.5)
[2018-06-12] MEDS: METOCLOPRAMIDE 10 MG/2 ML INJ 5 MG IV ×3 (06:26→21:27)
[2018-06-12] MEDS: MORPHINE PCA 30 MG/30 ML PCA.VIAL IV (06:29)
[2018-06-12] MEDS: PANTOPRAZOLE 40 MG VIAL IV (10:05)
[2018-06-12] MEDS: ENOXAPARIN 40 MG/0.4 ML SYRINGE SUBCUT (10:06)
[2018-06-12] MEDS: POTASSIUM CHLORIDE 20 MEQ TAB PO ×2 (10:06→17:22)
[2018-06-12] MEDS: OXYCODONE/ACETAMINOPHEN 5/325 TABLET 1 TAB PO (14:12)
--- NOTE | 2018-06-12 16:05 | PC.NURSE ---
day shift pt transitioned from DIRECTOR OF INFECTION PREVENTION to percocet. DIRECTOR OF INFECTION PREVENTION d/c'd. He used 19.9 mg this shift. tolerating diet without issue. blisters on abd, aware.
--- NOTE | 2018-06-12 17:10 | PC.NURSE ---
Wound Ostomy Nurse Note Nelson awake, he was ready to change his pouching appliance with me. He emptied his pouch and then removed the wafer. He re-applied a [employer] moldable 57mm wafer and pouch. I used a little stoma paste at the 11:00 position. Nelson did a very good job with removal of the appliance, cleaning and replacing the appliance. I gave him several supplies to use at home and hopefully home health will be seeing him this weekend or early next week. The stoma is moist, deep red with yellow most likely adipose tissue at the 5-7:00 position. The bridge is in place. His mid-line idania are intact. He has some bruising near the stoma in the 8:00 position as well as his left lower abdomen. I will see him post-op next week.
[2018-06-12] MEDS: OXYCODONE/ACETAMINOPHEN 5/325 TABLET 2 TAB PO (20:30)
[2018-06-13] MEDS: PIPERACILLIN-TAZO 3.375 GM/50 ML FROZ.PIGGY IV ×2 (00:55→06:38)
[2018-06-13 01:00] VITALS: O2SAT 96
[2018-06-13] MEDS: ZOLPIDEM 5 MG TABLET 10 MG PO (01:01)
[2018-06-13 01:26] VITALS: BP 130/87; PULSE 71; RESP 16; TEMP 36.8; O2SAT 96
[2018-06-13] MEDS: metroNIDAZOLE 500 MG/100 ML PIGGYBACK 100 MG IV ×2 (03:00→08:26)
[2018-06-13 05:00] VITALS: BP 141/95; PULSE 92; RESP 16; TEMP 37; O2SAT 96
[2018-06-13] MEDS: OXYCODONE/ACETAMINOPHEN 5/325 TABLET 1 TAB PO ×2 (05:31→09:59)
[2018-06-13] MEDS: METOCLOPRAMIDE 10 MG/2 ML INJ 5 MG IV (05:32)
[2018-06-13 08:00] VITALS: BP 128/86; PULSE 77; RESP 18; TEMP 37; O2SAT 97
[2018-06-13] MEDS: PANTOPRAZOLE 40 MG VIAL IV (08:26)
[2018-06-13] MEDS: ENOXAPARIN 40 MG/0.4 ML SYRINGE SUBCUT (08:26)
[2018-06-13] MEDS: POTASSIUM CHLORIDE 20 MEQ TAB PO (08:44)
[2018-06-13 09:00] VITALS: O2SAT 96
--- NOTE | 2018-06-13 09:02 | P.DS_ITS ---
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 He was at work today. He had abdominal pain for the last 4 days but because it became excruciating and he came to the emergency room as he could not stand it anymore. The pain began and remains in his midline in his pelvis suprapubic area. No dysuria or hematuria. No prior history of the symptoms. No nausea or vomiting but he did drink some liquids today. He is a bit anorexic. Has been having very small bowel movements the last 4 days. No blood per rectum. No history of abdominal operations or any cancer of the colon. The patient's father however in his 60s has cancer of the colon. The patient has never had a colonoscopy. The patient does note increased pain with ambulation or movement. The patient's pain has not increased since he has been in the emergency room. It also has not gotten any worse since his CT scan. Discharge Providers Date of admission: 06/06/18 15:08 Primary care physician: Leo Connolly MD Consults: 06/06/18 16:12 Consult to Discharge Planning Routine Comment: 06/08/18 19:59 Consult to Discharge Planning Routine Comment: 06/12/18 13:46 Consult to Dietitian, Adult Routine Comment: Today if possible Reason For Exam: Low residue diet Discharge provider: Sahil Pollock MD Discharge Date: 06/13/18 Summary Discharge Diagnosis: Acute Perforated diverticulitis with abscess Hypokalemia acute transient Gastroesophageal reflux disease chronic Hospital Course: Patient was admitted and begun on broad-spectrum antibiotics. He had initial good improvement but had persistent fevers. CT scan was repeated which revealed an increase in the air in his retroperitoneum that was quite marked. He was taken emergently to the operating room and underwent resection with primary anastomosis and ileal loop diversion. His postoperative course was smooth. He was given instructions in ostomy care. He felt comfortable at the time of discharge handling it. He was on a general diet. He was discharged with 4 additional days of antibiotics, continue DVT prophylaxis, and pain medication. He has an appointment to see me this Friday. Status at Discharge Cognitive/behavioral status at discharge: Normal Functional status at discharge: independent ambulation Overall status at discharge: patient is progressing back to baseline Exam Vital Signs (past 8 hours): - 06/13/18 01:00 06/13/18 01:26 06/13/18 05:00 Temperature 98.2 F 98.6 F Pulse Rate 71 92 H Respiratory Rate 16 16 Blood Pressure 130/87 141/95 H Pulse Oximetry 96 96 96 06/13/18 08:00 Temperature 98.6 F Pulse Rate 77 Respiratory Rate 18 Blood Pressure 128/86 Pulse Oximetry 97 Oxygen Delivery Method Room Air Oxygen Flow Rate 0 Narrative Exam Narrative: Lungs are clear to auscultation. Excellent effort. No rales or rhonchi. Heart regular rate and rhythm without murmur or gallop. Ostomy is viable. Productive. Midline wound intact as are the other laparoscopic incisions. No cellulitis of his abdominal wall. Mild distention. Total body edema improving. Objective Labs Result Diagrams: 06/12/18 05:13 06/12/18 05:13 Discharge Plan Discharge Plan Patient Disposition: Home Discharge comment: You had perforated diverticulitis. You had a small segment of colon removed and an anastomosis between the 2 ends created. Because of the inflammation in your abdomen we protected that anastomosis by diverting your intestinal stream with an ileostomy. This is meant to be temporary. Discharge Med Rec/Prescriptions Prescriptions: New metronidazole [Flagyl] 500 mg tablet 500 mg PO TID Qty: 12 RF: 0 sulfamethoxazole-trimethoprim 800-160 mg tablet 1 tab PO BID Qty: 8 RF: 0 oxycodone-acetaminophen [Percocet] 5-325 mg tablet See Label Instructions .ROUTE .COMPLEX PRN (Reason: painful procedure) Qty: 20 RF: 0 ibuprofen 600 mg tablet 600 mg PO TID-QID PRN (Reason: painful procedure) Qty: 20 RF: 1 enoxaparin [Lovenox] 40 mg/0.4 mL syringe 40 mg SUBCUT DAILY Qty: 4 RF: 0 Continue zolpidem 10 mg tablet 10 mg PO HS Qty: 30 RF: 5 omeprazole 20 mg tablet,delayed release (DR/EC) 20 mg PO DAILY Qty: 90 RF: 3 cetirizine [Zyrtec] 10 mg Tablet 10 mg PO DAILY RF: 0 Follow up/Referrals: Leo Connolly MD [Primary Care Provider] - Sahil Pollock MD [Physician] - 06/17/18 11:45 am (If you need to reach Dr. please call our office. 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 Do not bicycle run. You may walk. Other treatments: You have been prescribed Lovenox injections. The should be given once a day. They are designed to reduce her risk of developing a deep vein thrombosis (blood clots) Skin/Wound/Dressing Care Report to your healthcare provider any signs of infection, such as:: chills, fever, night sweats, increased pain, unusual drainage and unusual redness Discharge Data Primary Care Provider: Leo Connolly Attending Provider: Sahil Pollock Admit Date/Time: 06/06/18 15:08 Quality VTE Deep Vein Thrombosis/Pulmonary Embolism Present on Admission: No
--- NOTE | 2018-06-13 09:24 | CM.DPC ---
DCP Discharge home with HH Per MD, pt is medically stable to d/c home today and he signed the F2F for HH RN for new ostomy care per family request. DIANE met bedside with pt and explained role and he confirms that they could benefit from HH RN at d/c and no preference from HH Choice List and pt is agreeable with d/c home today via spouse POV later this morning. SW called [facility] and confirmed that they are contracted with pt's insurance and could accept the referral and open pt to service on Fri06/15/18. DIANE provided [facility] brochure to the pt and updated him on open date. DIANE faxed pt's facesheet, H&P, d/c summ, F2F from today, and orders to [facility] to review. Plan: Patient to d/c home today via spouse POV and [facility] to open the pt to HH RN service. FRAN Dey
== END 2018-06-13 12:40 | disposition home health service (06) | DRG 331 ==
LOC: ED 13:45 → AC 15:09 → ICU 04-29 15:49
PROVIDERS: Admitting Provider Specialist; Emergency Provider Emergency Medicine; Family Provider Family Medicine; PCP Family Medicine; Visit Provider Specialist
PROC: 0DTE0ZZ Resection of Large Intestine, Open Approach (ICD-10-PCS; principal; 2018-06-08 14:30)
PROC: (CPT 44140; 2018-06-08 14:30)
DX: K57.80 Diverticulitis of intestine, part unspecified, with perforation and abscess without bleeding (principal); K21.9 Gastro-esophageal reflux disease without esophagitis
CPT/HCPCS: 36415; 36591; 44160; 74177; 80048; 80053; 80076; 83605; 83690; 83735; 84145; 85025; 87070; 87075; 87077; 87186; 87205; 87797; 94760; 96361; 96365; 96367; 96375; 96376; 99222; 99284; 99285; C9113; J0131; J0330; J1100; J1170; J1650; J1885; J2250; J2270; J2405; J2543; J2704; J2765; J3010; J3480; Q9967

== ENCOUNTER 2018-07-14 09:23 | Emergency (ER) | payer OTHER, SELFPAY ==
[2018-06-06 16:12] VITALS: BMI 25.9
[2018-07-14 09:38] VITALS: BP 130/93; PULSE 103; RESP 18; TEMP 36.4; O2SAT 100
--- NOTE | 2018-07-14 09:52 | PC.NURSE ---
s/p colectomy, with ileostomy, june [address] barillas pad has had cold sxs over the weekend, with coughing developed right lower abominal pain , denies fever, denies vomiting, ileostomy draining normal.
--- NOTE | 2018-07-14 10:01 | ED_ITS ---
HPI - Abdominal Pain General Chief Complaint: Abdominal Pain Stated Complaint: POST OP ABDOMINAL PAIN Time Seen by Provider: 07/14/18 09:55 Source: patient Mode of arrival: ambulatory Limitations: no limitations History of Present Illness HPI narrative: Patient is a 43-year-old male here for evaluation of right lower quadrant abdominal pain. Recently he was seen here in this emergency department and admitted for perforated diverticulum. He ended up having a laparotomy with a colon resection. He now has an ileostomy in place. He has been getting drainage from the ileostomy. He reports that over the past day or so he has had right lower quadrant abdominal pain. No urinary symptoms. Related Data Home Medications Medication Instructions Recorded Confirmed cetirizine [Zyrtec] 10 mg PO QPM 06/06/18 07/14/18 pantoprazole 40 mg PO QPM 07/14/18 07/14/18 zolpidem 10 mg PO BEDTIME 07/14/18 07/14/18 Previous Rx's Medication Instructions Recorded benzonatate [Tessalon Perles] 100 mg PO TID PRN #30 cap 07/14/18 codeine-guaifenesin [Guaifenesin 5 ml PO Q6H PRN #118 ml 07/14/18 AC] Allergies Allergy/AdvReac Type Severity Reaction Status Date / Time No Known Drug Allergies Allergy Verified 07/08/18 15:03 Review of Systems Constitutional Denies fever(s) Gastrointestinal Gastrointestinal: Reports abdominal pain, Denies nausea and Denies vomiting Genitourinary Denies genital pain and Denies dysuria Musculoskeletal Denies myalgias and Denies arthralgias Integumentary/Breasts Denies rash PFSH Medical History Gastroesophageal reflux disease (Chronic) Surgical History Hx of colectomy (Acute) Family History Father Cancer Social History household members: spouse and children Smoking Status: Never smoker alcohol intake: current Family History Father Cancer Social History household members: spouse and children Smoking Status: Never smoker alcohol intake: current Exam Initial Vital Signs Initial Vital Signs: Vital Signs Temperature 97.5 F L 07/14/18 09:38 Pulse Rate 103 H 07/14/18 09:38 Respiratory Rate 18 07/14/18 09:38 Blood Pressure 130/93 H 07/14/18 09:38 Pulse Oximetry 100 07/14/18 09:38 Const General: cooperative, healthy appearing, well developed, well groomed and No acute distress Orientation: alert, awake and oriented x3 Resp Effort & Inspection: normal respiratory effort Cardio Rate: tachycardic GI Other: Ileostomy in place. Abdomen is soft. Does have right lower quadrant abdominal pain without rebound or guarding Skin Lesions: lesions noted Rashes: rash noted Neuro General: alert and awake Extrem General: normal to inspection and capillary refill normal Course Orders Ordered: ED Orders 07/14/18 10:05 Complete Blood Count AUTO DIFF Stat Comprehensive Metabolic Panel Stat Lipase Stat 07/14/18 10:09 CT abdomen pelvis w con Stat 07/14/18 10:20 Lactate (Lactic Acid) Stat Discontinued Medications Sodium Chloride (Normal Saline 0.9%) 1,000 mls @ 1,000 mls/hr IV BOLUS ONE Stop: 07/14/18 10:54 Last Infusion: 07/14/18 12:00 Dose: 0 mls/hr Admin: 07/14/18 10:37 Dose: 1,000 mls/hr Vital Signs - 8 hr 07/14/18 09:38 07/14/18 10:49 07/14/18 12:08 Temperature 97.5 F L Pulse Rate 103 H 83 75 Respiratory Rate 18 18 18 Blood Pressure 130/93 H Blood Pressure [Left Arm] 134/94 H 128/89 Pulse Oximetry 100 100 100 MDM - Abdominal Pain Medical Records Attestation: I reviewed the patient's medical records. Lab Data Attestation: I reviewed the patient's lab results. Result diagrams: 07/14/18 10:05 07/14/18 10:05 Lab Results 07/14/18 07/14/18 07/14/18 Range/Units 10:05 10:05 10:20 WBC 8.7 (4.5-11.0) X10^3/uL RBC 4.74 (4.5-5.9) X10^6/uL Hgb 15.6 (13.5-17.5) g/dL Hct 44.5 (41-53) % MCV 93.9 (80-100) fL MCH 32.9 (26-34) PG MCHC 35.1 (30-36) % RDW 13.3 (11.6-14.8) % Plt Count 255 (150-400) X10^3/uL Neut % (Auto) 79.0 H (50-75) % Lymph % (Auto) 13.0 L (25-40) % [place] % (Auto) 6.4 (3-14) % Eos % (Auto) 1.1 L (2-4) % Baso % (Auto) 0.5 (0-2) % Neut # (Auto) 6900 (7459-2465) /uL Lymph # (Auto) 1100 (7290-9020) /uL [place] # (Auto) 600 (0-900) /uL Eos # (Auto) 100 (0-450) /uL Baso # (Auto) 0 (0-100) /uL Sodium 138 (137-145) mmol/L Potassium 3.9 (3.4-5.1) mmol/L Chloride 100 (98-107) mmol/L Carbon Dioxide 27 (22-32) mmol/L BUN 12 (9-20) mg/dL Creatinine 0.70 (0.66-1.25) mg/dL Estimated GFR > 60.0 (>60) mL/min BUN/Creatinine Ratio 17.1 (6-22) Glucose 100 (70-100) mg/dL Lactate 0.7 (0.7-2.1) mmol/L Calcium 9.4 (8.4-10.2) mg/dL Total Bilirubin 0.8 (0.2-1.3) mg/dL AST 33 (17-59) IU/L ALT 46 (21-72) IU/L Alkaline Phosphatase 134 H (38-126) U/L Total Protein 8.4 H (6.3-8.2) g/dL Albumin 4.7 (3.5-5.0) g/dL Globulin 3.7 (1.7-4.1) g/dL Albumin/Globulin Ratio 1.3 (1.0-2.8) Lipase 214 (23-300) U/L Imaging Data CT scan - abdomen: Radiologist's impression: PROCEDURE: CT ABDOMEN PELVIS W CON INDICATIONS: Right-sided abdominal pain TECHNIQUE: After the administration of intravenous contrast, 5 mm thick sections acquired from the diaphragm to the symphysis. 5 mm coronal and sagittal reformats were acquired. For radiation dose reduction, the following was used: automated exposure control, adjustment of mA and/or kV according to patient size. COMPARISON: [facility], CT, CT ABDOMEN PELVIS W CON, 06/08/2018, 10:50. FINDINGS: Image quality: Excellent. ABDOMEN: Lung bases: Lung bases are clear. Heart size is normal. Solid organs: Liver is normal in size and enhancement. Gallbladder is normal. Biliary system is non dilated. Pancreas enhances normally. Spleen is normal in size and enhancement. No adrenal nodules. Kidneys demonstrate normal size and enhancement, without hydronephrosis. Peritoneum and bowel: There is partial colectomy in the sigmoid colon. There is stranding and thickening near the surgical anastomosis. There is an ileostomy in the rectal quadrant. Mild small bowel may be mildly thickened proximal to ileostomy. No free fluid or air. Nodes and vessels: No retroperitoneal or mesenteric adenopathy by size criteria. Aorta and inferior vena cava are normal in size. Miscellaneous: No ventral hernias. PELVIS: Genitourinary: Bladder wall thickness is normal. Miscellaneous: No inguinal hernias or adenopathy. Bones: No suspicious bony lesions. No vertebral body compression fractures. IMPRESSION: 1. There is partial colectomy in the sigmoid colon. There is focal thickening and stranding in the area of surgical anastomosis. No drainable fluid collection to suggest abscess is identified. 2. An ileostomy is noted in the right lower quadrant. Mild small bowel wall thickening may be present proximal to the ileostomy. The result was discussed with Dr. Vick in ER prior to dictation. Dictated by: Nick Navarro M.D. on 07/14/2018 at 11:37 Approved by: Nick Navarro M.D. on 07/14/2018 at 11:50 MDM Narrative Medical decision making narrative: CT scan does not show any acute changes. Radiologist reported that the thickening is most likely postoperative changes. Patient is afebrile. Hold on further workup for now. Patient was given return precautions. He expressed understanding and agreement with plan. Discharge Plan Departure Patient Disposition: Home Clinical Impression: Abdominal pain Qualifiers: Abdominal location: right lower quadrant Qualified Code(s): R10.31 - Right lower quadrant pain Discharge Date/Time: 07/14/18 12:14 Interventions: ED Discharge Assessment Last Done: 07/14/18 12:14 Instructions: DI for Abdominal Pain-Adult Activity Restrictions/Additional Instructions: Continue to take all of your medications as directed. Keep all of your scheduled medical appointments. Return to the emergency department for any new or worsening symptoms. Prescriptions: New benzonatate [Tessalon Perles] 100 mg capsule 100 mg PO TID PRN (Reason: cough) Qty: 30 RF: 0 codeine-guaifenesin [Guaifenesin AC] 10-100 mg/5 mL liquid 5 ml PO Q6H PRN (Reason: cold symptoms) Qty: 118 RF: 0 No Action pantoprazole 40 mg tablet,delayed release (DR/EC) 40 mg PO QPM RF: 0 zolpidem 10 mg tablet 10 mg PO BEDTIME RF: 0 cetirizine [Zyrtec] 10 mg Tablet 10 mg PO QPM RF: 0 Referrals: Leo Connolly MD [Primary Care Provider] -
--- NOTE | 2018-07-14 10:09 | DI.CT.S_ITS ---
PROCEDURE: CT ABDOMEN PELVIS W CON INDICATIONS: Right-sided abdominal pain TECHNIQUE: After the administration of intravenous contrast, 5 mm thick sections acquired from the diaphragm to the symphysis. 5 mm coronal and sagittal reformats were acquired. For radiation dose reduction, the following was used: automated exposure control, adjustment of mA and/or kV according to patient size. COMPARISON: [facility], CT, CT ABDOMEN PELVIS W CON, 06/08/2018, 10:50. FINDINGS: Image quality: Excellent. ABDOMEN: Lung bases: Lung bases are clear. Heart size is normal. Solid organs: Liver is normal in size and enhancement. Gallbladder is normal. Biliary system is non dilated. Pancreas enhances normally. Spleen is normal in size and enhancement. No adrenal nodules. Kidneys demonstrate normal size and enhancement, without hydronephrosis. Peritoneum and bowel: There is partial colectomy in the sigmoid colon. There is stranding and thickening near the surgical anastomosis. There is an ileostomy in the rectal quadrant. Mild small bowel may be mildly thickened proximal to ileostomy. No free fluid or air. Nodes and vessels: No retroperitoneal or mesenteric adenopathy by size criteria. Aorta and inferior vena cava are normal in size. Miscellaneous: No ventral hernias. PELVIS: Genitourinary: Bladder wall thickness is normal. Miscellaneous: No inguinal hernias or adenopathy. Bones: No suspicious bony lesions. No vertebral body compression fractures. IMPRESSION: 1. There is partial colectomy in the sigmoid colon. There is focal thickening and stranding in the area of surgical anastomosis. No drainable fluid collection to suggest abscess is identified. 2. An ileostomy is noted in the right lower quadrant. Mild small bowel wall thickening may be present proximal to the ileostomy. The result was discussed with Dr. Vick in ER prior to dictation. Dictated by: Nick Navarro M.D. on 07/14/2018 at 11:37 Approved by: Nick Navarro M.D. on 07/14/2018 at 11:50
[2018-07-14 10:21] LABS: Add Manual Diff / Slide Review NO; Basophils Absolute Auto 0 /uL (0-100); Basophils Percent Auto 0.5 % (0-2); Eosinophils Absolute Auto 100 /uL (0-450); Eosinophils Percent Auto 1.1 % (2-4); Hematocrit 44.5 % (41-53); Hemoglobin 15.6 g/dL (13.5-17.5); Lymphocytes Absolute Auto 1100 /uL (1100-4500); Mean Corpuscular HGB Conc 35.1 % (30-36); Mean Corpuscular Hemoglobin 32.9 PG (26-34); Mean Corpuscular Volume 93.9 fL (80-100); Monocytes Absolute Auto 600 /uL (0-900); Monocytes Percent Auto 6.4 % (3-14); Neutrophils Absolute Auto 6900 /uL (1500-7000); Platelet Count 255 X10^3/uL (150-400); Red Blood Cell Count 4.74 X10^6/uL (4.5-5.9); Red Cell Distribution Width 13.3 % (11.6-14.8); White Blood Cell Count 8.7 X10^3/uL (4.5-11.0)
[2018-07-14 10:32] LABS: Alanine Aminotransferase 46 IU/L (21-72); Albumin 4.7 g/dL (3.5-5.0); Albumin Globulin Ratio 1.3 (1.0-2.8); Alkaline Phosphatase 134 U/L (38-126); Aspartate Aminotransferase 33 IU/L (17-59); BUN Creatinine Ratio 17.1 (6-22); Bilirubin Total 0.8 mg/dL (0.2-1.3); Blood Urea Nitrogen 12 mg/dL (9-20); Calcium 9.4 mg/dL (8.4-10.2); Carbon Dioxide 27 mmol/L (22-32); Chloride 100 mmol/L (98-107); Estimated Glomerular Filt Rate > 60.0 mL/min (>60); Globulin 3.7 g/dL (1.7-4.1); Glucose 100 mg/dL (70-100); HEMOLYSIS < 15 (0-50); Lipase 214 U/L (23-300); Potassium 3.9 mmol/L (3.4-5.1); Sodium 138 mmol/L (137-145); Total Protein 8.4 g/dL (6.3-8.2)
[2018-07-14 10:35] LABS: Lactate (Lactic Acid) 0.7 mmol/L (0.7-2.1)
[2018-07-14] MEDS: SODIUM CHLORIDE 0.9% 1,000 ML 1000 ML IV (10:37)
[2018-07-14 10:49] VITALS: BP 134/94; PULSE 83; RESP 18; O2SAT 100
[2018-07-14 12:08] VITALS: BP 128/89; PULSE 75; RESP 18; O2SAT 100
== END 2018-07-14 12:14 | disposition home or self-care (01) ==
PROVIDERS: Emergency Provider Emergency Medicine; Family Provider Family Medicine; PCP Family Medicine
DX: R10.31 Right lower quadrant pain (principal)
CPT/HCPCS: 36591; 74177; 80053; 83605; 83690; 85025; 96360; 99283; 99285; Q9967

== ENCOUNTER → 2019-02-17 09:19 | Outpatient (CLI) | payer OTHER, SELFPAY ==
[2018-06-06 16:12] VITALS: BMI 25.9
== END ==
PROVIDERS: Family Provider Family Medicine; PCP Family Medicine
DX: Z23 Encounter for immunization (principal)
CPT/HCPCS: 90471; 90686

== ENCOUNTER 2019-03-31 19:09 | Inpatient (IN) | payer OTHER, SELFPAY ==
[2018-06-06 16:12] VITALS: BMI 25.9
[2019-03-31 19:11] VITALS: BP 149/109; PULSE 112; RESP 24; TEMP 36.7; O2SAT 100
--- NOTE | 2019-03-31 19:14 | ED_ITS ---
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 About 15 minutes prior to arrival in the ER he developed some severe right abdominal pain. he has had discomfort last week, but not of this severity. He walks in complaining of weakness, feeling like he could pass out. He has no associated chest pain or dyspnea. He has no confusion or focal weakness. he underwent bowel resection May 2018 after diverticulitis with perforation. He had a 2nd perforation 3 months ago. He required 2nd surgeon, he has had a partial colectomy and now has a left mid abdominal ostomy. He has no history of bowel obstruction. He describes normal bowel output today. He has had no blood in his stool. He has had no recent fever or chills. He has no urinary complaints. Related Data Home Medications Medication Instructions Recorded Confirmed cetirizine [Zyrtec] 10 mg PO QPM 06/06/18 03/31/19 Previous Rx's Medication Instructions Recorded zolpidem 10 mg tablet 10 mg PO BEDTIME #30 tab 12/22/18 omeprazole 20 mg tablet,delayed 20 mg PO DAILY #90 tab 02/18/19 release Allergies Allergy/AdvReac Type Severity Reaction Status Date / Time No Known Drug Allergies Allergy Verified 12/22/18 10:59 Review of Systems Constitutional Constitutional: Denies chills, Denies fever(s), Denies lethargy and Reports weakness Comments: Feeling faint ENT Ears, Nose, Mouth, and Throat: Denies dysphagia, Denies vertigo, Reports dizziness and Denies dry mouth Cardiovascular Cardiovascular: Denies chest pain, Denies irregular heart rhythm, Denies lightheadedness, Denies palpitations, Denies dyspnea and Denies orthopnea Respiratory Respiratory: Denies cough, Denies dyspnea and Denies wheezing Gastrointestinal Gastrointestinal: Reports as per HPI, Reports abdominal pain, Denies belching, Denies melena, Denies bloating, Denies hematochezia and Denies dysphagia Genitourinary Genitourinary: Denies dysuria Musculoskeletal Musculoskeletal: Denies back pain, Denies muscle weakness and Denies numbness Integumentary/Breasts Skin/Breast: Denies rash Neurologic Neurologic: Denies confusion, Denies vertigo, Reports dizziness, Denies numbness and Reports weakness Psychiatric Psychiatric: Denies anxiety, Denies confusion and Denies depression Endocrine Endocrine: Denies palpitations Hematologic/Lymphatic Hematologic/Lymphatic: Denies easy bleeding Allergic/Immunologic Allergic/Immunologic: Denies wheezing Patient History Medical History (Updated 04/01/19 @ 00:27 by Ian Del Real MD) Diverticulitis of colon with perforation (Acute) Gastroesophageal reflux disease (Chronic) Insomnia (Acute) Surgical History (Updated 04/01/19 @ 00:27 by Ian Del Real MD) Hx of colectomy (Acute) Family History Father Cancer Social History household members: spouse and children Smoking Status: Never smoker alcohol intake: current alcohol intake frequency: 0-2 drinks per day Substance Use Type: does not use Exam Initial Vital Signs Initial Vital Signs: Vital Signs Temperature 98.0 F 03/31/19 19:11 Pulse Rate 112 H 03/31/19 19:11 Respiratory Rate 24 03/31/19 19:11 Blood Pressure 149/109 H 03/31/19 19:11 Pulse Oximetry 100 03/31/19 19:11 Const General: cooperative, well developed and acute distress Nutritional Appearance: well nourished Orientation: alert, awake, oriented x3 and not confused [facility] [place] Mouth: oral mucosae normal Eyes Conjunctivae: conjunctivae normal Resp Effort & Inspection: normal respiratory effort, able to speak in complete sentences, no respiratory distress and no use of accessory muscles Auscultation: clear to auscultation bilaterally, no rales, no rhonchi and no wheezes Cardio Rate: regular rate Rhythm: regular rhythm Heart Sounds: S1 normal, S2 normal, no click, no gallops, no murmurs and no rubs Pulses: normal peripheral pulses GI Other: Abdomen is nondistended. There is right mid abdominal tenderness without guarding or rebound. there is an ostomy in the left mid abdomen. The bag has no air or bowel content. He bowel sounds are rushing. Back/Spine/Pelvis Back: No CVA tenderness Skin General: no rashes or lesions noted, No jaundice and No petechiae Neuro General: alert, oriented x3, gait normal and no focal motor deficits Speech: speech normal Extrem General: full ROM, no clubbing, cyanosis or edema, no pedal edema and no calf tenderness Psych Appearance: well kempt Mental Status: mental status grossly normal Attitude: cooperative Thought Content: normal Judgment: judgment good Course Course Course Narrative: The patient presented with acute onset of right lower quadrant abdominal pain, but has not felt well in recent days. He is injured 2 bowel perforations and 2 surgeries this year, including a partial colectomy 3 months ago. He has a stoma of the left abdomen. CT shows areas of inflammation about thickening, with pericolonic inflammatory changes noted in the left lower quadrant. He has received IV fluid boluses, Toradol and morphine for pain, and he has now been started on Levaquin and Flagyl for colitis. There is CT evidence suggesting ileus. I discussed his care with the on-call physician, Dr. beto beyer. The patient be admitted. He will be given IV fluids, as well as continued doses of antibiotics. He will be NPO at the time of admission. Decision to Admit Date: 03/31/19 Decision to Admit time: 20:44 Orders Ordered: ED Orders 03/31/19 19:15 CT abdomen pelvis w con Stat 03/31/19 19:20 Complete Blood Count AUTO DIFF Stat Comprehensive Metabolic Panel Stat Lactate (Lactic Acid) Stat Lipase Stat Type and Screen Stat Sodium Chloride (Normal Saline 0.9%) 1,000 mls @ 250 mls/hr IV CONT LENIN Last Infusion: 03/31/19 21:42 Dose: 0 mls/hr Documented by: Infusion: 03/31/19 19:30 Dose: 1,000 mls/hr Documented by: Admin: 03/31/19 19:28 Dose: 250 mls/hr Documented by: JODEE Sodium Chloride (Normal Saline 0.9%) 1,000 mls @ 150 mls/hr IV CONT LENIN Last Admin: 03/31/19 23:23 Dose: 150 mls/hr Documented by: SHARON Levofloxacin (Levaquin) 500 mg in 100 mls @ 100 mls/hr IV Q24H LENIN Metronidazole (Flagyl) 500 mg in 100 mls @ 100 mls/hr IV Q8H LENIN Morphine Sulfate (Morphine) 4 mg IV Q4HR PRN PRN Reason: Pain, Moderate (4-6) Last Admin: 03/31/19 22:14 Dose: 4 mg Documented by: DEEPIKA Ondansetron HCl (Zofran) 4 mg IV Q4HR PRN PRN Reason: Nausea And Vomiting Zolpidem Tartrate (Ambien) 10 mg PO BEDTIME PRN PRN Reason: Sleep Discontinued Medications Sodium Chloride (Normal Saline 0.9%) 1,000 mls @ 1,000 mls/hr IV BOLUS ONE Stop: 03/31/19 20:49 Last Admin: 03/31/19 21:41 Dose: 1,000 mls/hr Documented by: IRMA Levofloxacin (Levaquin) 500 mg in 100 mls @ 100 mls/hr IV NOW ONE Stop: 03/31/19 21:19 Last Infusion: 03/31/19 21:27 Dose: 0 mls/hr Documented by: Admin: 03/31/19 20:27 Dose: 100 mls/hr Documented by: IRMA Metronidazole (Flagyl) 500 mg in 100 mls @ 100 mls/hr IV NOW ONE Stop: 03/31/19 21:19 Last Admin: 03/31/19 21:41 Dose: 100 mls/hr Documented by: IRMA Sodium Chloride (Normal Saline 0.9%) 1,000 mls @ 1,000 mls/hr IV BOLUS ONE Stop: 03/31/19 22:32 Last Admin: 03/31/19 22:13 Dose: 1,000 mls/hr Documented by: DEEPIKA Ketorolac Tromethamine (Toradol) 30 mg IV NOW ONE Stop: 03/31/19 20:08 Last Admin: 03/31/19 20:12 Dose: 30 mg Documented by: JODEE Morphine Sulfate (Morphine) 4 mg IV NOW ONE Stop: 03/31/19 19:15 Last Admin: 03/31/19 19:27 Dose: 4 mg Documented by: JODEE Vital Signs Vital signs: Vital Signs - 8 hr 03/31/19 19:11 Temperature 98.0 F Pulse Rate 112 H Respiratory Rate 24 Blood Pressure 149/109 H Pulse Oximetry 100 MDM - Abdominal Pain Lab Data Result diagrams: 03/31/19 19:20 03/31/19 19:20 Labs: Lab Results 11/03/31/19 03/31/19 Range/Units 19:20 19:20 19:20 WBC 10.5 (4.5-11.0) X10^3/uL RBC 5.20 (4.5-5.9) X10^6/uL Hgb 17.4 (13.5-17.5) g/dL Hct 49.7 (41-53) % MCV 95.5 (80-100) fL MCH 33.5 (26-34) PG MCHC 35.1 (30-36) % RDW 14.2 (11.6-14.8) % Plt Count 298 (150-400) X10^3/uL Neut % (Auto) 58.4 (50-75) % Lymph % (Auto) 30.5 (25-40) % [place] % (Auto) 8.7 (3-14) % Eos % (Auto) 1.4 L (2-4) % Baso % (Auto) 1.0 (0-2) % Neut # (Auto) 6100 (2469-0660) /uL Lymph # (Auto) 3200 (8314-4206) /uL [place] # (Auto) 900 (0-900) /uL Eos # (Auto) 100 (0-450) /uL Baso # (Auto) 100 (0-100) /uL Sodium 140 (137-145) mmol/L Potassium 3.4 (3.4-5.1) mmol/L Chloride 101 (98-107) mmol/L Carbon Dioxide 25 (22-32) mmol/L BUN 13 (9-20) mg/dL Creatinine 0.90 (0.66-1.25) mg/dL Estimated GFR > 60.0 (>60) mL/min BUN/Creatinine Ratio 14.4 (6-22) Glucose 113 H (70-100) mg/dL Lactate 2.1 (0.7-2.1) mmol/L Calcium 9.2 (8.4-10.2) mg/dL Total Bilirubin 0.6 (0.2-1.3) mg/dL AST 100 H (17-59) IU/L ALT 83 H (<50) IU/L Alkaline Phosphatase 128 H (38-126) U/L Total Protein 8.3 H (6.3-8.2) g/dL Albumin 4.9 (3.5-5.0) g/dL Globulin 3.4 (1.7-4.1) g/dL Albumin/Globulin Ratio 1.4 (1.0-2.8) Lipase 212 (23-300) U/L Blood Type Antibody Screen 03/31/19 Range/Units 19:20 WBC (4.5-11.0) X10^3/uL RBC (4.5-5.9) X10^6/uL Hgb (13.5-17.5) g/dL Hct (41-53) % MCV (80-100) fL MCH (26-34) PG MCHC (30-36) % RDW (11.6-14.8) % Plt Count (150-400) X10^3/uL Neut % (Auto) (50-75) % Lymph % (Auto) (25-40) % [place] % (Auto) (3-14) % Eos % (Auto) (2-4) % Baso % (Auto) (0-2) % Neut # (Auto) (7256-2810) /uL Lymph # (Auto) (9772-8594) /uL [place] # (Auto) (0-900) /uL Eos # (Auto) (0-450) /uL Baso # (Auto) (0-100) /uL Sodium (137-145) mmol/L Potassium (3.4-5.1) mmol/L Chloride (98-107) mmol/L Carbon Dioxide (22-32) mmol/L BUN (9-20) mg/dL Creatinine (0.66-1.25) mg/dL Estimated GFR (>60) mL/min BUN/Creatinine Ratio (6-22) Glucose (70-100) mg/dL Lactate (0.7-2.1) mmol/L Calcium (8.4-10.2) mg/dL Total Bilirubin (0.2-1.3) mg/dL AST (17-59) IU/L ALT (<50) IU/L Alkaline Phosphatase (38-126) U/L Total Protein (6.3-8.2) g/dL Albumin (3.5-5.0) g/dL Globulin (1.7-4.1) g/dL Albumin/Globulin Ratio (1.0-2.8) Lipase (23-300) U/L Blood Type B Negative Antibody Screen Negative Imaging Data CT scan - abdomen: Radiologist's impression: Persistent colon suggesting colitis, particularly notable in the loop of bowel at the ostomy site. Mildly prominent fluid-filled loops of small bowel possibly related to an ileus. Possible developing SBO. ECG Data Attestation: I personally reviewed and interpreted this ECG as follows: Critical Care Time Critical Care Time Critical Care Time: Yes Total Critical Care Time: 40 Attestation: Critical care time included initial patient's assessment, review of past medical records, review of x-ray, EKG and lab data. The lab data and clinical manage was discussed with the patient, the case was discussed with the admitting hospitalist. Discharge Plan Departure Patient Disposition: Admitted As Inpatient Clinical Impression: Colitis Discharge Date/Time: 03/31/19 21:58 Admit Date/Time: 03/31/19 20:53 Admit Provider: Jacklyn Brantley
--- NOTE | 2019-03-31 19:15 | DI.CT.S_ITS ---
PROCEDURE: CT ABDOMEN PELVIS W CON INDICATIONS: RLQ pain. history of diverticulitis with perforation x2. TECHNIQUE: After the administration of intravenous contrast, 5 mm thick sections acquired from the diaphragm to the symphysis. 5 mm coronal and sagittal reformats were acquired. For radiation dose reduction, the following was used: automated exposure control, adjustment of mA and/or kV according to patient size. COMPARISON: [facility], CT, CT ABDOMEN PELVIS W CON, 06/06/2018, 12:37. [facility], CT, CT ABDOMEN PELVIS W CON, 06/08/2018, 10:50. [facility], CT, CT ABDOMEN PELVIS W CON, 07/14/2018, 10:57. FINDINGS: Image quality: Excellent. ABDOMEN: Lung bases: 3 mm right lower lobe nodule, unchanged compared to 06/06/18. Heart size is normal. Solid organs: Liver is normal in size and enhancement. Hepatic steatosis is present. Gallbladder is unremarkable. Biliary system is non dilated. Pancreas enhances normally. Spleen is normal in size and enhancement. No adrenal nodules. Kidneys demonstrate normal size and enhancement, without hydronephrosis. Peritoneum and bowel: Bowel loops demonstrate normal wall thickness and caliber. No free fluid or air. Partial colectomy changes are noted. Left lower quadrant ostomy is present. There is an overall appearance of thickening within the remaining colon. Minimal appearance of pericolonic inflammatory change is noted within the left lower quadrant followup extending to the ostomy site. Minimally prominent fluid filled loops of scattered small bowel. Nodes and vessels: No retroperitoneal or mesenteric adenopathy by size criteria. Aorta and inferior vena cava are normal in size. Miscellaneous: No ventral hernias. PELVIS: Genitourinary: Bladder wall thickness is normal. Miscellaneous: No inguinal hernias or adenopathy. Bones: No suspicious bony lesions. No vertebral body compression fractures. IMPRESSION: 1. Thickened appearance of remaining colon loops. While this could be secondary to incomplete distention, developing colitis cannot be definitively excluded. This is particularly notable in the loop of bowel at the ostomy site which does demonstrate minimal pericolonic inflammatory change. 2. Mildly prominent fluid filled loops of small bowel possibly related to ileus. Developing partial small bowel obstruction cannot be excluded. Dictated by: Myriam Frost M.D. on 03/31/2019 at 19:59 Approved by: Myriam Frost M.D. on 03/31/2019 at 20:02
[2019-03-31] MEDS: MORPHINE 4 MG/ML INJ IV (19:27)
[2019-03-31] MEDS: SODIUM CHLORIDE 0.9% 1,000 ML 250 ML IV (19:28)
[2019-03-31 19:29] LABS: Add Manual Diff / Slide Review NO; Basophils Absolute Auto 100 /uL (0-100); Eosinophils Absolute Auto 100 /uL (0-450); Eosinophils Percent Auto 1.4 % (2-4); Hematocrit 49.7 % (41-53); Hemoglobin 17.4 g/dL (13.5-17.5); Lymphocytes Absolute Auto 3200 /uL (1100-4500); Lymphocytes Percent Auto 30.5 % (25-40); Mean Corpuscular HGB Conc 35.1 % (30-36); Mean Corpuscular Hemoglobin 33.5 PG (26-34); Mean Corpuscular Volume 95.5 fL (80-100); Monocytes Absolute Auto 900 /uL (0-900); Monocytes Percent Auto 8.7 % (3-14); Neutrophils Absolute Auto 6100 /uL (1500-7000); Neutrophils Percent Auto 58.4 % (50-75); Platelet Count 298 X10^3/uL (150-400); Red Cell Distribution Width 14.2 % (11.6-14.8); White Blood Cell Count 10.5 X10^3/uL (4.5-11.0)
[2019-03-31 19:45] LABS: Lactate (Lactic Acid) 2.1 mmol/L (0.7-2.1)
[2019-03-31 19:46] LABS: Alanine Aminotransferase 83 IU/L (<50); Albumin 4.9 g/dL (3.5-5.0); Albumin Globulin Ratio 1.4 (1.0-2.8); Alkaline Phosphatase 128 U/L (38-126); Aspartate Aminotransferase 100 IU/L (17-59); BUN Creatinine Ratio 14.4 (6-22); Bilirubin Total 0.6 mg/dL (0.2-1.3); Blood Urea Nitrogen 13 mg/dL (9-20); Calcium 9.2 mg/dL (8.4-10.2); Carbon Dioxide 25 mmol/L (22-32); Chloride 101 mmol/L (98-107); Estimated Glomerular Filt Rate > 60.0 mL/min (>60); Globulin 3.4 g/dL (1.7-4.1); Glucose 113 mg/dL (70-100); HEMOLYSIS < 15 (0-50); Lipase 212 U/L (23-300); Potassium 3.4 mmol/L (3.4-5.1); Sodium 140 mmol/L (137-145); Total Protein 8.3 g/dL (6.3-8.2)
--- NOTE | 2019-03-31 20:02 | PC.NURSE ---
patient up to restroom, reports significant increase in abd pain 7/10.
[2019-03-31] MEDS: KETOROLAC 60 MG/2 ML VIAL 30 MG IV (20:12)
[2019-03-31] MEDS: levoFLOXacin 500 MG/100 ML PIGGYBACK 100 MG IV (20:27)
[2019-03-31] MEDS: SODIUM CHLORIDE 0.9% 1,000 ML 1000 ML IV ×2 (21:41→22:13)
[2019-03-31] MEDS: metroNIDAZOLE 500 MG/100 ML PIGGYBACK 100 MG IV (21:41)
[2019-03-31 21:50] VITALS: BP 159/94; PULSE 85; RESP 16; O2SAT 98
[2019-03-31 22:10] VITALS: BMI 25.0
[2019-03-31] MEDS: MORPHINE 2 MG/ML INJ 4 MG IV (22:14)
[2019-03-31 22:27] VITALS: BP 138/91; PULSE 87; RESP 20; TEMP 36.4; O2SAT 98
--- NOTE | 2019-03-31 22:36 | PC.NURSE ---
Admit pt to AC from ER around 2200. VSS. abdomen distended with BTs hyperactive to left side and absent to right side. colostomy patent and pt denies any change in output. Received levaquin in ER and currently has flagyl infusing and NS to bolus. alert and oriented and independent in room. instructed to use call light for needs. chapstick and mouth swabs provided and pt aware in NPO.
[2019-03-31 23:10] VITALS: BP 150/92; PULSE 95; RESP 16; TEMP 37.6; O2SAT 100
[2019-03-31] MEDS: SODIUM CHLORIDE 0.9% 1,000 ML 150 ML IV (23:23)
[2019-04-01 02:00] VITALS: TEMP 36.4
[2019-04-01] MEDS: MORPHINE 2 MG/ML INJ 4 MG IV ×2 (02:44→09:06)
[2019-04-01 05:00] VITALS: BP 145/88; PULSE 81; RESP 16; TEMP 36.4; O2SAT 99
--- NOTE | 2019-04-01 05:44 | PC.NURSE ---
Pt reports abdominal pain improved since he went to the ER. Rates pain 2-4/10, requested IV pain medication x1 overnight for pain ar RLQ that radiated to mid way to LLQ, describes as dull, achy. Denies nausea, remains NPO. Bowel tones hypoactive in all four quadrants. Pt states he is passing some gas into his LLQ colostomy. Pt had no output from his colostomy overnight, but did empty it yesterday afternoon. Pt on Flagyl and Levofloxacin. Con't IVF of NS @ 150cc/hr, adequate UOP. Pt has current type and screen. No labs ordered for this morning, pt would like to clarify if labs needed with provider this morning, will communicate to oncoming nurse.
[2019-04-01] MEDS: SODIUM CHLORIDE 0.9% 1,000 ML 150 ML IV (06:20)
[2019-04-01] MEDS: metroNIDAZOLE 500 MG/100 ML PIGGYBACK 100 MG IV ×2 (06:21→14:58)
[2019-04-01 07:55] VITALS: BP 143/89; PULSE 70; RESP 16; TEMP 36.6; O2SAT 98
--- NOTE | 2019-04-01 10:00 | DI.RAD.S_ITS ---
PROCEDURE: XR ACUTE ABDOMEN SERIES INDICATIONS: abdomen pain TECHNIQUE: One view chest and two views of the abdomen were acquired. COMPARISON: [facility], CT, CT ABDOMEN PELVIS W CON, 03/31/2019, 19:36. FINDINGS: Surgical changes and devices: The patient's known left lower quadrant colostomy is only faintly seen. Chest: Lungs are clear. Heart size is normal. No pleural effusions. No pneumoperitoneum. Abdomen: Bowel gas pattern is normal. No suspicious calcifications. Visualized solid organ contours appear normal. Bones: No suspicious bony lesions. IMPRESSION: Nonobstructive bowel gas pattern. Clear lungs. Dictated by: Sergio Galan M.D. on 04/01/2019 at 9:43 Approved by: Sergio Galan M.D. on 04/01/2019 at 9:44
--- NOTE | 2019-04-01 10:06 | P.HP_ITS ---
History of Present Illness History of Present Illness Date Patient Seen: 04/01/19 Time Patient Seen: 10:06 Chief complaint: Abdominal pain Narrative: Abdominal pain. Patient admitted last night through the emergency room were abdominal pain. Patient was in his usual state of health yesterday. He has had intermittent various abdominal pain is left-sided and right-sided none of which were any 72 kids. Last night he developed chills and dizziness and felt weak associated with some increasing abdominal pain was seen in the ER. Evaluation ER resulted in admission for concerned about partial small-bowel obstruction as well as presumed colitis based on the CT interpretation. Patient is status post perforated sigmoid colon status post low anterior resection of the sigmoid colon May 2018 here on hospital. He had a loop ileostomy takedown by general surgeon david ever since without difficulties. Takes experienced a recurrence bowel obstruction/perforation undergoing sigmoid resection with and a colostomy is December of [address] [facility] ([place], [place]). Since then he has done reasonably well. He is having for frequent stool output in the colostomy bag. He has had no melena or hematochezia no nausea no vomiting. Recently he had improved. He has no history of a diagnosis of colitis. This morning he feels better than he did last night but still not quite back to normal which to having some discomfort he is passing gas in his colostomy bag with no stool output. He relates that no input since last night. Patient History Medical History Diverticulitis of colon with perforation (Acute) Gastroesophageal reflux disease (Chronic) Insomnia (Acute) Surgical History Hx of colectomy (Acute) Family & Social History Family History Father Cancer Social History: household members spouse,children Prior Living Arrangements House Safety & Behavioral: Feels Safe in Current Yes Environment Been Physically Hurt or No Threatened By a Person Suicidal Ideation Description None Suicide Plan Description No Plan Tobacco & Substance use: Smoking Status Never smoker alcohol intake current alcohol intake frequency 0-2 drinks per day Substance Use Type does not use Meds Home Medications and Allergies Home Medications Medication Instructions Recorded Confirmed Type cetirizine [Zyrtec] 10 mg PO QPM 06/06/18 03/31/19 History zolpidem 10 mg tablet 10 mg PO BEDTIME #30 tab 12/22/18 03/31/19 Rx omeprazole 20 mg tablet,delayed 20 mg PO DAILY #90 tab 02/18/19 03/31/19 Rx release Allergies Allergy/AdvReac Type Severity Reaction Status Date / Time No Known Drug Allergies Allergy Verified 12/22/18 10:59 Review of Systems Review of Systems ROS Unobtainable: All systems reviewed & are unremarkable except as noted in HPI and below Exam Vital Signs (past 8 hours): - 04/01/19 05:00 04/01/19 07:55 Temperature 97.6 F 97.8 F Pulse Rate 81 70 Respiratory Rate 16 16 Blood Pressure 145/88 H 143/89 H Pulse Oximetry 99 98 Oxygen Delivery Method Room Air Oxygen Flow Rate 0 Narrative Exam Narrative: The patient initially is walking around his hospital bed gets back into bed and he appears in no distress. Gen.: [] Skin: [Warm well perfused. No prominent lesions. Nonicteric]. HEENT: PERRL., [normal EOM, external ears canals TMs normal, nasal mucosa normal and midline septum, oropharynx without lesions.] Neck: [Trachea midline. Thyroid nontender and not enlarged. Carotids without bruits. No lymphadenopathy] Back: [No obvious deformity or tenderness]. Chest: [Clear to P&A. Symmetric]. CV: [RRR no murmur or gallop. No JVD]. Abdomen: No stool output in the bag. And he has very minimal tenderness throu ghout this no rebound Neuro: [Cranial nerves II through XII grossly intact. Sensory and motor exams intact. Gait normal.] Mental status: [Intact for screening] Extremities: [No cyanosis clubbing or edema] Musculoskeletal: [No gross deformities] Lymphatics: [Negative for lymphadenopathy, supraclavicular axillary or inguinal] Objective Labs Result Diagrams: 03/31/19 19:20 03/31/19 19:20 Labs: Laboratory Results - last 24 hr 03/31/19 03/31/19 03/31/19 19:20 19:20 19:20 WBC 10.5 RBC 5.20 Hgb 17.4 Hct 49.7 MCV 95.5 MCH 33.5 MCHC 35.1 RDW 14.2 Plt Count 298 Neut % (Auto) 58.4 Lymph % (Auto) 30.5 [place] % (Auto) 8.7 Eos % (Auto) 1.4 L Baso % (Auto) 1.0 Neut # (Auto) 6100 Lymph # (Auto) 3200 [place] # (Auto) 900 Eos # (Auto) 100 Baso # (Auto) 100 Sodium 140 Potassium 3.4 Chloride 101 Carbon Dioxide 25 BUN 13 Creatinine 0.90 Estimated GFR > 60.0 BUN/Creatinine Ratio 14.4 Glucose 113 H Lactate 2.1 Calcium 9.2 Total Bilirubin 0.6 AST 100 H ALT 83 H Alkaline Phosphatase 128 H Total Protein 8.3 H Albumin 4.9 Globulin 3.4 Albumin/Globulin Ratio 1.4 Lipase 212 Blood Type Antibody Screen 03/31/19 03/31/19 19:20 21:45 WBC RBC Hgb Hct MCV MCH MCHC RDW Plt Count Neut % (Auto) Lymph % (Auto) [place] % (Auto) Eos % (Auto) Baso % (Auto) Neut # (Auto) Lymph # (Auto) [place] # (Auto) Eos # (Auto) Baso # (Auto) Sodium Potassium Chloride Carbon Dioxide BUN Creatinine Estimated GFR BUN/Creatinine Ratio Glucose Lactate 1.0 Calcium Total Bilirubin AST ALT Alkaline Phosphatase Total Protein Albumin Globulin Albumin/Globulin Ratio Lipase Blood Type B Negative Antibody Screen Negative Labs reviewed as above. CT result is reviewed in there is some concerned about the inflammation of the colon consistent with diagnosis of colitis yet to be determined Assessment & Plan Assessment & Plan narrative: 1. History of perforated diverticulitis status post ileostomy. 2. History of recurrent perforation status post colostomy. 3. Recent development of abdominal pain associated with fever and general malaise. 4. 4. Changes of CT consistent with colitis as well as ileus. Patient is treated with the antibiotics for the time being. Will get some updated lab this morning and x-rays of the abdomen. Discussed to made with Dr. Lou general surgeon about whether not of his other diagnoses. If patient requires further hospitalization of will repeat transferred out ever general where his doctor is who does the surgery. Quality VTE Deep Vein Thrombosis/Pulmonary Embolism Present on Admission: No
[2019-04-01 10:25] LABS: Add Manual Diff / Slide Review NO; Basophils Absolute Auto 0 /uL (0-100); Basophils Percent Auto 0.6 % (0-2); Eosinophils Absolute Auto 100 /uL (0-450); Eosinophils Percent Auto 1.1 % (2-4); Hematocrit 44.8 % (41-53); Hemoglobin 15.8 g/dL (13.5-17.5); Lymphocytes Absolute Auto 1100 /uL (1100-4500); Lymphocytes Percent Auto 13.9 % (25-40); Mean Corpuscular HGB Conc 35.2 % (30-36); Mean Corpuscular Hemoglobin 33.3 PG (26-34); Mean Corpuscular Volume 94.8 fL (80-100); Monocytes Absolute Auto 600 /uL (0-900); Monocytes Percent Auto 8.2 % (3-14); Neutrophils Absolute Auto 5800 /uL (1500-7000); Neutrophils Percent Auto 76.2 % (50-75); Platelet Count 210 X10^3/uL (150-400); Red Blood Cell Count 4.72 X10^6/uL (4.5-5.9); Red Cell Distribution Width 14.1 % (11.6-14.8); White Blood Cell Count 7.6 X10^3/uL (4.5-11.0)
[2019-04-01 10:37] LABS: Alanine Aminotransferase 58 IU/L (<50); Albumin Globulin Ratio 1.5 (1.0-2.8); Alkaline Phosphatase 97 U/L (38-126); Aspartate Aminotransferase 64 IU/L (17-59); BUN Creatinine Ratio 8.6 (6-22); Bilirubin Total 1.2 mg/dL (0.2-1.3); Blood Urea Nitrogen 6 mg/dL (9-20); Calcium 8.3 mg/dL (8.4-10.2); Carbon Dioxide 22 mmol/L (22-32); Chloride 103 mmol/L (98-107); Estimated Glomerular Filt Rate > 60.0 mL/min (>60); Globulin 2.6 g/dL (1.7-4.1); Glucose 96 mg/dL (70-100); HEMOLYSIS 18 (0-50); Lipase 105 U/L (23-300); Potassium 3.5 mmol/L (3.4-5.1); Sodium 136 mmol/L (137-145); Total Protein 6.6 g/dL (6.3-8.2)
--- NOTE | 2019-04-01 10:51 | CM.DANOTE ---
DCP: Case received, EMR reviewed and met with patient. Introduced self and role. Was able to meet with patient to obtain baseline health and activity information. DCP template/assessment completed with information currently available. Patient is a 43 year old male who admitted yesterday evening to the care of the hospitalist/surgical team. PCP: Dr. Connolly. Payer: confirmed: [facility]. Patient came to the hospital via family vehicle secondary to right sided abdominal pain. Patient has history of partial colectomy, and has an ostomy. Patient holds current diagnosis of colitis. Met with patient in his room, family at bedside. He is independent, and works here at [employer]. he resides in [facility] with his spouse, Ai. P: DCP to continue to follow. Patient should be able to return home when he is medically stable. Catia Marin RN/Dietitian Assistant
[2019-04-01 11:03] VITALS: BP 143/91; PULSE 76; RESP 18; TEMP 36.7; O2SAT 97
--- NOTE | 2019-04-01 12:02 | PM.CN ---
History of Present Illness Consult details Date Patient Seen: 04/01/19 Time Patient Seen: 12:03 Chief complaint: Abdominal pain Reason for consult: abdominal pain Requesting provider: Leo Connolly Narrative: This is a 43 yo man with complex surgical history including Lina's procedure with diverting ileostomy done here last May, with ileostomy takedown done by an outside surgeon, followed by sigmoid resection and descending colostomy done by the same outside surgeon. His last surgery was about three months ago. Patient admitted last night through the emergency room with abdominal pain. He was feeling fine yesterday until about noon, when he started having severe right lower and upper abdominal pain. He says he felt hot and dizzy, so he came into the ER. He had a CT scan through the ER which was relatively unimpressive, but showed a few dilated loops of small bowel, and a thickened colon. As mentioned on the CT scan report thickened colon was thought to be possibly colitis versus just decompressed colon because there was no stool in it. The patient had an x-ray this morning of his abdomen which was normal. He is feeling a bit better, and has now had some ostomy output. He has some vague pains in the left lower abdomen now, but the right-sided abdominal pain has resolved. He would like to go home. I have recommended that we gradually advance his diet, and if he does well with it he may be able to go home this evening. He has a follow-up appointment planned with his outside surgeon with next week, which he is planning to keep. At this time he denies nausea, dysuria, blood in the stool, dark/tarry looking stool, fevers, chills, significant abdominal pain. ROS: Thirteen system review is negative other than as mentioned below and in HPI. PE: GENERAL: Well groomed and cooperative. Appears stated age. Answers questions promptly and appropriately. Vital signs noted. HENT: Normocephalic, atraumatic. Hearing intact. Oral mucosa is pink and moist. EYES: Conjunctiva pink, sclera white, no periorbital swelling. CARDIOVASCULAR: Regular rate. No pedal edema. RESPIRATORY: Normal respiratory rate, breathing comfortably on room air. GASTROINTESTINAL: Abdomen soft, mildly distended, thin but normal-appearing stool in the ostomy bag, nontender to palpation GENITALURINARY: No flank tenderness. MUSCULOSKELETAL: Equal tone and mass bilaterally. SKIN: Warm, dry, soft, appropriate color for ethnicity. No other lesions, rashes, or wounds. NEURO: Alert and Oriented X 3. No gross sensory deficits, or cognitive issues. PSYCH: Appropriate affect and mood. [facility] Medical History Diverticulitis of colon with perforation (Acute) Gastroesophageal reflux disease (Chronic) Insomnia (Acute) Surgical History Hx of colectomy (Acute) Family History Father Cancer Social History household members: spouse and children Smoking Status: Never smoker alcohol intake: current Meds Home Medications and Allergies Home Medications Medication Instructions Recorded Confirmed Type cetirizine [Zyrtec] 10 mg PO QPM 06/06/18 03/31/19 History zolpidem 10 mg tablet 10 mg PO BEDTIME #30 tab 12/22/18 03/31/19 Rx omeprazole 20 mg tablet,delayed 20 mg PO DAILY #90 tab 02/18/19 03/31/19 Rx release Allergies Allergy/AdvReac Type Severity Reaction Status Date / Time No Known Drug Allergies Allergy Verified 12/22/18 10:59 Exam Vital Signs (past 8 hours): - 04/01/19 05:00 04/01/19 07:55 Temperature 97.6 F 97.8 F Pulse Rate 81 70 Respiratory Rate 16 16 Blood Pressure 145/88 H 143/89 H Pulse Oximetry 99 98 Oxygen Delivery Method Room Air Oxygen Flow Rate 0 Objective ECG Impression: CT scan: A few scattered small bowel loops which may be borderline dilated, thickened colon which may be secondary to the colon itself being decompressed Abdominal x-ray: Normal Labs Result Diagrams: 04/01/19 10:15 04/01/19 10:15 Labs: Laboratory Results - last 24 hr 03/31/19 03/31/19 03/31/19 19:20 19:20 19:20 WBC 10.5 RBC 5.20 Hgb 17.4 Hct 49.7 MCV 95.5 MCH 33.5 MCHC 35.1 RDW 14.2 Plt Count 298 Neut % (Auto) 58.4 Lymph % (Auto) 30.5 [place] % (Auto) 8.7 Eos % (Auto) 1.4 L Baso % (Auto) 1.0 Neut # (Auto) 6100 Lymph # (Auto) 3200 [place] # (Auto) 900 Eos # (Auto) 100 Baso # (Auto) 100 Sodium 140 Potassium 3.4 Chloride 101 Carbon Dioxide 25 BUN 13 Creatinine 0.90 Estimated GFR > 60.0 BUN/Creatinine Ratio 14.4 Glucose 113 H Lactate 2.1 Calcium 9.2 Total Bilirubin 0.6 AST 100 H ALT 83 H Alkaline Phosphatase 128 H Total Protein 8.3 H Albumin 4.9 Globulin 3.4 Albumin/Globulin Ratio 1.4 Lipase 212 Blood Type Antibody Screen 03/31/19 03/31/19 04/01/19 19:20 21:45 10:15 WBC 7.6 RBC 4.72 Hgb 15.8 Hct 44.8 MCV 94.8 MCH 33.3 MCHC 35.2 RDW 14.1 Plt Count 210 Neut % (Auto) 76.2 H Lymph % (Auto) 13.9 L [place] % (Auto) 8.2 Eos % (Auto) 1.1 L Baso % (Auto) 0.6 Neut # (Auto) 5800 Lymph # (Auto) 1100 [place] # (Auto) 600 Eos # (Auto) 100 Baso # (Auto) 0 Sodium Potassium Chloride Carbon Dioxide BUN Creatinine Estimated GFR BUN/Creatinine Ratio Glucose Lactate 1.0 Calcium Total Bilirubin AST ALT Alkaline Phosphatase Total Protein Albumin Globulin Albumin/Globulin Ratio Lipase Blood Type B Negative Antibody Screen Negative 04/01/19 10:15 WBC RBC Hgb Hct MCV MCH MCHC RDW Plt Count Neut % (Auto) Lymph % (Auto) [place] % (Auto) Eos % (Auto) Baso % (Auto) Neut # (Auto) Lymph # (Auto) [place] # (Auto) Eos # (Auto) Baso # (Auto) Sodium 136 L Potassium 3.5 Chloride 103 Carbon Dioxide 22 BUN 6 L Creatinine 0.70 Estimated GFR > 60.0 BUN/Creatinine Ratio 8.6 Glucose 96 Lactate Calcium 8.3 L Total Bilirubin 1.2 AST 64 H ALT 58 H Alkaline Phosphatase 97 Total Protein 6.6 Albumin 4.0 Globulin 2.6 Albumin/Globulin Ratio 1.5 Lipase 105 D Blood Type Antibody Screen Assessment & Plan Assessment and plan (1) History of partial colectomy: Problem details: Noted Current visit: Yes Status: Acute (2) GERD (gastroesophageal reflux disease): Problem details: Baseline, home meds Current visit: Yes Status: Acute (3) Colitis: Problem details: Not ruled out, but symptoms have improved and colitis is of lower likelihood at this point Current visit: Yes Status: Acute (4) Abdominal pain: Problem details: Improved Current visit: Yes Status: Acute Assessment & Plan narrative: I had a long discussion with the patient regarding his symptoms, imaging, labs, history, and exam findings. I do not know exactly what caused his symptoms, but they seem to have resolved at this point. On the differential is symptomatic partial small bowel obstruction from adhesive disease, gastroenteritis, colitis which may be infectious or ischemic. The patient is feeling better would like to go home. I recommended that we gradually advance his diet and see how he does. If he does well in goes home he certainly needs to follow up with his primary surgeon as planned next week. If his symptoms recur, we should do a more thorough inpatient evaluation which may include CT angio of the abdominal vasculature and a colonoscopy. Plan: Start with clears, advanced as tolerated to full liquid and low residual diet If the patient does well he may go home on a low residual diet with plans to follow up next week with his outside surgeon Please page me if he does not tolerate advancement of his diet and we will go forward with inpatient evaluation 45 minutes were spent face to face with the patient. More than 50% of the time was spent in counseling and co-ordination of care regarding his complex surgical history, symptoms, abdominal imaging, questions regarding the possibility of having colitis, questions regarding the possibility of having a food allergy, and developing a plan of care for him as an inpatient and outpatient. Time Spent With Patient Time with patient: Greater than 35 minutes
--- NOTE | 2019-04-01 15:34 | PC.NURSE ---
GI: Pt reports the pain he had at admission is gone. Does have Bt's, flatus in ostomy. Taking clears w/out problems. Diet has been advanced to full liq. Has been up and amb in the room. Cont w/poc.
[2019-04-01 16:45] VITALS: BP 146/101; PULSE 68; RESP 20; TEMP 36.3; O2SAT 99
--- NOTE | 2019-04-01 17:34 | P.DS_ITS ---
History of Present Illness History of Present Illness Chief complaint: Abdominal pain Narrative: Abdominal pain. Patient admitted last night through the emergency room were abdominal pain. Patient was in his usual state of health yesterday. He has had intermittent various abdominal pain is left-sided and right-sided none of which were any 72 kids. Last night he developed chills and dizziness and felt weak associated with some increasing abdominal pain was seen in the ER. Evaluation ER resulted in admission for concerned about partial small-bowel obstruction as well as presumed colitis based on the CT interpretation. Patient is status post perforated sigmoid colon status post low anterior resection of the sigmoid colon May 2018 here on hospital. He had a loop ileostomy takedown by general surgeon david ever since without difficulties. Takes experienced a recurrence bowel obstruction/perforation undergoing sigmoid resection with and a colostomy is December of 2018 by surgeon at [facility]. Since then he has done reasonably well. He is having for frequent stool output in the colostomy bag. He has had no melena or hematochezia no nausea no vomiting. Recently he had improved. He has no history of a diagnosis of colitis. This morning he feels better than he did last night but still not quite back to normal which to having some discomfort he is passing gas in his colostomy bag with no stool output. He relates that no input since last night. Discharge Providers Provider Date of admission: 03/31/19 20:53 Discharge Date: 04/01/19 Primary care physician: Leo Connolly MD Consults: 04/01/19 08:08 Consult to General Surgery Routine Comment: Consulting Provider: Jen Cannon Reason for consultation: abd pain Has provider been notified: No Discharge provider: Leo Connolly MD Summary Hospital Course Discharge Diagnosis: Abdominal pain. History of colostomy. History of ileostomy take down. History of perforated diverticulitis. Hospital Course: Patient was admitted through the ER for abdominal pain. Concern being a may have had some a small bowel obstruction/colitis. Question post thickening of the colon wall on CT. He was admitted for evaluation of same. He received intravenous antibiotics overnight. His white count remained normal. His temperature remained normal. The he almost became asymptomatic following day tolerate clear liquids full liquids soft diet. He was discharged as of evening home on a low residue diet. Patient seen in consultation by General surgeon who felt he had perhaps a gastr oenteritis and perhaps some ischemic colitis yet to be determined as an outpatient. Patient was discharged off antibiotics follow-up with his GI surgeon next week in [place] as per plan Status at Discharge Cognitive/behavioral status at discharge: oriented and at baseline, oriented Functional status at discharge: independent ambulation Overall status at discharge: patient is not back to baseline Exam Vital Signs (past 8 hours): - 04/01/19 11:03 04/01/19 16:45 Temperature 98.0 F 97.4 F L Pulse Rate 76 68 Respiratory Rate 18 20 Blood Pressure 143/91 H 146/101 H Pulse Oximetry 97 99 Oxygen Delivery Method Room Air Oxygen Flow Rate 0 Objective Labs Result Diagrams: 04/01/19 10:15 04/01/19 10:15 Labs: Laboratory Results - last 24 hr 03/31/19 03/31/19 03/31/19 19:20 19:20 19:20 WBC 10.5 RBC 5.20 Hgb 17.4 Hct 49.7 MCV 95.5 MCH 33.5 MCHC 35.1 RDW 14.2 Plt Count 298 Neut % (Auto) 58.4 Lymph % (Auto) 30.5 [place] % (Auto) 8.7 Eos % (Auto) 1.4 L Baso % (Auto) 1.0 Neut # (Auto) 6100 Lymph # (Auto) 3200 [place] # (Auto) 900 Eos # (Auto) 100 Baso # (Auto) 100 Sodium 140 Potassium 3.4 Chloride 101 Carbon Dioxide 25 BUN 13 Creatinine 0.90 Estimated GFR > 60.0 BUN/Creatinine Ratio 14.4 Glucose 113 H Lactate 2.1 Calcium 9.2 Total Bilirubin 0.6 AST 100 H ALT 83 H Alkaline Phosphatase 128 H Total Protein 8.3 H Albumin 4.9 Globulin 3.4 Albumin/Globulin Ratio 1.4 Lipase 212 Blood Type Antibody Screen 03/31/19 03/31/19 04/01/19 19:20 21:45 10:15 WBC 7.6 RBC 4.72 Hgb 15.8 Hct 44.8 MCV 94.8 MCH 33.3 MCHC 35.2 RDW 14.1 Plt Count 210 Neut % (Auto) 76.2 H Lymph % (Auto) 13.9 L [place] % (Auto) 8.2 Eos % (Auto) 1.1 L Baso % (Auto) 0.6 Neut # (Auto) 5800 Lymph # (Auto) 1100 [place] # (Auto) 600 Eos # (Auto) 100 Baso # (Auto) 0 Sodium Potassium Chloride Carbon Dioxide BUN Creatinine Estimated GFR BUN/Creatinine Ratio Glucose Lactate 1.0 Calcium Total Bilirubin AST ALT Alkaline Phosphatase Total Protein Albumin Globulin Albumin/Globulin Ratio Lipase Blood Type B Negative Antibody Screen Negative 04/01/19 10:15 WBC RBC Hgb Hct MCV MCH MCHC RDW Plt Count Neut % (Auto) Lymph % (Auto) [place] % (Auto) Eos % (Auto) Baso % (Auto) Neut # (Auto) Lymph # (Auto) [place] # (Auto) Eos # (Auto) Baso # (Auto) Sodium 136 L Potassium 3.5 Chloride 103 Carbon Dioxide 22 BUN 6 L Creatinine 0.70 Estimated GFR > 60.0 BUN/Creatinine Ratio 8.6 Glucose 96 Lactate Calcium 8.3 L Total Bilirubin 1.2 AST 64 H ALT 58 H Alkaline Phosphatase 97 Total Protein 6.6 Albumin 4.0 Globulin 2.6 Albumin/Globulin Ratio 1.5 Lipase 105 D Blood Type Antibody Screen Discharge Plan Discharge Plan Patient Disposition: Home Discharge comment: low roughage diet. appt w surgeon next weekEj Discharge orders & Medications Prescriptions: Continued omeprazole 20 mg tablet,delayed release (DR/EC) 20 mg PO DAILY Qty: 90 RF: 3 zolpidem 10 mg tablet 10 mg PO BEDTIME Qty: 30 RF: 5 cetirizine [Zyrtec] 10 mg Tablet 10 mg PO QPM RF: 0 Follow up/Referrals: Leo Connolly MD [Primary Care Provider] - Visit Report/Discharge Packet Instructions: DI for Colitis Discharge Data Primary Care Provider: Leo Connolly Quality VTE Deep Vein Thrombosis/Pulmonary Embolism Present on Admission: No
--- NOTE | 2019-04-01 17:51 | PC.NURSE ---
Evening Shift Note- Patient d/c'ED home per MD. Discharge instructions and education reviewed with patient and paperwork sign. IV line removed and bandaid applied. Patient left with all persoanl belongings to private vehicle with brother in law.
== END 2019-04-01 17:45 | disposition home or self-care (01) | DRG 392 ==
LOC: ED 20:45 → AC 20:54
PROVIDERS: Admitting Provider Family Medicine; Emergency Provider Emergency Medicine; Family Provider Family Medicine; PCP Family Medicine; Visit Provider Family Medicine
DX: K52.9 Noninfective gastroenteritis and colitis, unspecified (principal); K55.9 Vascular disorder of intestine, unspecified; K56.609 Unspecified intestinal obstruction, unspecified as to partial versus complete obstruction; R10.9 Unspecified abdominal pain; G47.00 Insomnia, unspecified; K21.9 Gastro-esophageal reflux disease without esophagitis; Z93.3 Colostomy status
CPT/HCPCS: 36415; 74022; 74177; 80053; 83605; 83690; 85025; 86850; 86900; 86901; 93005; 96361; 96365; 96375; 99284; 99285; J1885; J1956; J2270; Q9967

== ENCOUNTER → 2020-02-29 15:25 | Outpatient (CLI) | payer OTHER, SELFPAY | PROVIDERS: Family Provider Family Medicine; PCP Family Medicine; Referring Provider Internal Medicine; Visit Provider Internal Medicine | DX: Z23 Encounter for immunization (principal) | CPT/HCPCS: 90471; 90686 ==

== ENCOUNTER → 2020-05-25 11:16 | Outpatient (CLI) | payer OTHER, SELFPAY ==
[2020-05-25] MEDS: COVID-19 VACC(MODERNA-1)/PF 100 MCG/0.5 ML VIAL IM (11:18)
== END ==
PROVIDERS: Family Provider Family Medicine; PCP Family Medicine; Visit Provider Internal Medicine
DX: Z23 Encounter for immunization (principal)
CPT/HCPCS: 0011A; 91301

== ENCOUNTER → 2020-06-20 08:05 | Outpatient (CLI) | payer OTHER, SELFPAY ==
[2020-06-20] MEDS: COVID-19 VACC #2, MRNA(MOD) 100 MCG/0.5 ML VIAL IM (08:09)
== END ==
PROVIDERS: PCP Family Medicine; Visit Provider Internal Medicine
DX: Z23 Encounter for immunization (principal)
CPT/HCPCS: 0012A; 91301

== ENCOUNTER → 2020-10-07 07:12 | Outpatient (CLI) | payer OTHER, SELFPAY ==
[2020-10-07 10:22] LABS: Semen Sperm Prescence Post-Vas Absent (ABSENT)
== END ==
PROVIDERS: PCP Family Medicine; Referring Provider Family Medicine; Visit Provider Family Medicine
DX: Z30.09 Encounter for other general counseling and advice on contraception (principal); Z98.52 Vasectomy status
CPT/HCPCS: 89321

== ENCOUNTER → 2020-11-04 07:14 | Outpatient (CLI) | payer OTHER, SELFPAY ==
[2020-11-04 09:35] LABS: Add Manual Diff / Slide Review NO; Basophils Absolute Auto 100 /uL (0-100); Basophils Percent Auto 0.8 % (0-2); Eosinophils Absolute Auto 200 /uL (0-450); Eosinophils Percent Auto 2.9 % (2-4); Hematocrit 46.1 % (41-53); Hemoglobin 15.8 g/dL (13.5-17.5); Lymphocytes Absolute Auto 1500 /uL (1100-4500); Lymphocytes Percent Auto 23.8 % (25-40); Mean Corpuscular HGB Conc 34.2 % (30-36); Mean Corpuscular Hemoglobin 31.3 PG (26-34); Mean Corpuscular Volume 91.3 fL (80-100); Monocytes Absolute Auto 400 /uL (0-900); Monocytes Percent Auto 6.6 % (3-14); Neutrophils Absolute Auto 4200 /uL (1500-7000); Neutrophils Percent Auto 65.9 % (50-75); Platelet Count 208 X10^3/uL (150-400); Red Blood Cell Count 5.04 X10^6/uL (4.5-5.9); Red Cell Distribution Width 12.7 % (11.6-14.8); White Blood Cell Count 6.4 X10^3/uL (4.5-11.0)
[2020-11-04 10:20] LABS: Alanine Aminotransferase 18 IU/L (<50); Albumin 4.3 g/dL (3.5-5.0); Albumin Globulin Ratio 1.7 (1.0-2.8); Alkaline Phosphatase 54 U/L (38-126); Aspartate Aminotransferase 24 IU/L (17-59); BUN Creatinine Ratio 21.1 (6-22); Bilirubin Total 0.8 mg/dL (0.2-1.3); Blood Urea Nitrogen 19 mg/dL (9-20); Calcium 9.7 mg/dL (8.4-10.2); Carbon Dioxide 29 mmol/L (22-32); Chloride 103 mmol/L (98-107); Cholesterol 168 mg/dL (140-199); Estimated Glomerular Filt Rate > 60.0 mL/min (>60); Globulin 2.6 g/dL (1.7-4.1); Glucose 86 mg/dL (70-100); HDL Cholesterol 60 mg/dL (40-60); HEMOLYSIS < 15 (0-50); LDL Cholesterol Calculated 79 mg/dL (<100); Potassium 4.5 mmol/L (3.4-5.1); Sodium 139 mmol/L (137-145); Total Protein 6.9 g/dL (6.3-8.2); Triglycerides 145 mg/dL (35-150)
== END ==
PROVIDERS: PCP Family Medicine; Referring Provider Family Medicine; Visit Provider Family Medicine
DX: Z13.0 Encounter for screening for diseases of the blood and blood-forming organs and certain disorders involving the immune mechanism (principal); Z13.29 Encounter for screening for other suspected endocrine disorder; Z13.220 Encounter for screening for lipoid disorders
CPT/HCPCS: 36415; 80053; 80061; 85025

== ENCOUNTER → 2021-05-31 12:01 | Outpatient (CLI) | payer BC, SELFPAY ==
--- NOTE | 2021-05-31 12:05 | DI.CT.S_ITS ---
PROCEDURE: CT CHEST WO CON INDICATIONS: nodule on lung TECHNIQUE: Noncontrast 5 mm thick sections acquired from the pulmonary apices to the posterior costophrenic angles. 1 mm lung window, 5 mm thick coronal and sagittal and 7 mm axial MIP reformats were then acquired. For radiation dose reduction, the following was used: automated exposure control, adjustment of mA and/or kV according to patient size. COMPARISON: [facility], CT, CT ABDOMEN PELVIS W CON, 03/31/2019, 19:36. FINDINGS: Image quality: Excellent. Lungs and pleura: No acute air space opacities. No pleural effusions or pneumothorax. Central and peripheral airways are patent and normal in caliber. Mediastinum: Heart size is normal. No pericardial effusion. No mediastinal adenopathy by size criteria. Thoracic aorta and central pulmonary arteries are normal in size. Esophagus is normal in caliber. No hiatal hernia. Bones and chest wall: No suspicious bony lesions. No vertebral body compression fractures. No axillary or supraclavicular adenopathy by size criteria. Thyroid gland is within normal limits on noncontrast imaging . Abdomen: Visualized upper abdominal solid organs and bowel loops appear normal in the absence of contrast. IMPRESSION: 1. Slight increase in size of right anterior lung base nodule, consistent with benign etiology. Continued follow-up recommended to exclude indolent neoplasm. The lesion is too small to biopsy percutaneously or to study via PET-CT examination. Dictated by: Mitzy Black M.D. on 05/31/2021 at 13:29 Approved by: Mitzy Black M.D. on 05/31/2021 at 13:32
== END ==
PROVIDERS: PCP Family Medicine; Referring Provider Family Medicine; Visit Provider Family Medicine
DX: R91.1 Solitary pulmonary nodule (principal)
CPT/HCPCS: 71250

== ENCOUNTER → 2022-07-23 09:54 | Outpatient (CLI) | payer BC, SELFPAY ==
[2022-07-23 11:58] LABS: Alanine Aminotransferase 23 IU/L (<50); Albumin 4.6 g/dL (3.5-5.0); Albumin Globulin Ratio 1.6 (1.0-2.8); Alkaline Phosphatase 64 U/L (38-126); Aspartate Aminotransferase 26 IU/L (17-59); BUN Creatinine Ratio 21.2 (6-22); Bilirubin Total 0.8 mg/dL (0.2-1.3); Blood Urea Nitrogen 18 mg/dL (9-20); Carbon Dioxide 31 mmol/L (22-32); Chloride 99 mmol/L (98-107); Estimated Glomerular Filt Rate > 60 mL/min (>60); Globulin 2.9 g/dL (1.7-4.1); Glucose 90 mg/dL (70-100); HEMOLYSIS < 15 (0-50); Potassium 4.1 mmol/L (3.4-5.1); Sodium 138 mmol/L (137-145); Total Protein 7.5 g/dL (6.3-8.2)
== END ==
PROVIDERS: PCP Family Medicine; Referring Provider Family Medicine; Visit Provider Family Medicine
DX: Z00.00 Encounter for general adult medical examination without abnormal findings (principal); G47.00 Insomnia, unspecified; Z90.49 Acquired absence of other specified parts of digestive tract
CPT/HCPCS: 36415; 80053

== ENCOUNTER → 2023-08-18 09:16 | Outpatient (CLI) | payer BC, SELFPAY ==
[2023-08-18 10:40] LABS: Add Manual Diff / Slide Review NO; Basophils Absolute Auto 0 /uL (0-100); Basophils Percent Auto 0.6 % (0-2); Eosinophils Absolute Auto 300 /uL (0-450); Hematocrit 47.7 % (41-53); Hemoglobin 16.4 g/dL (13.5-17.5); Lymphocytes Absolute Auto 2300 /uL (1100-4500); Lymphocytes Percent Auto 32.9 % (25-40); Mean Corpuscular HGB Conc 34.5 % (30-36); Mean Corpuscular Hemoglobin 31.9 PG (26-34); Mean Corpuscular Volume 92.7 fL (80-100); Monocytes Absolute Auto 600 /uL (0-900); Monocytes Percent Auto 8.7 % (3-14); Neutrophils Absolute Auto 3700 /uL (1500-7000); Neutrophils Percent Auto 53.8 % (50-75); Platelet Count 188 X10^3/uL (150-400); Red Blood Cell Count 5.15 X10^6/uL (4.5-5.9); White Blood Cell Count 6.8 X10^3/uL (4.5-11.0)
[2023-08-18 10:53] LABS: Alanine Aminotransferase 21 IU/L (<50); Albumin Globulin Ratio 1.5 (1.0-2.8); Alkaline Phosphatase 51 U/L (38-126); Aspartate Aminotransferase 24 IU/L (17-59); Blood Urea Nitrogen 13 mg/dL (9-20); Calcium 9.1 mg/dL (8.4-10.2); Carbon Dioxide 31 mmol/L (22-32); Chloride 106 mmol/L (98-107); Cholesterol 166 mg/dL (140-199); Estimated Glomerular Filt Rate > 60 mL/min (>60); Globulin 2.7 g/dL (1.7-4.1); Glucose 92 mg/dL (70-100); HDL Cholesterol 71 mg/dL (40-60); HEMOLYSIS < 15 (0-50); LDL Cholesterol Calculated 65 mg/dL (<100); Potassium 4.1 mmol/L (3.4-5.1); Sodium 140 mmol/L (137-145); Total Protein 6.7 g/dL (6.3-8.2); Triglycerides 149 mg/dL (35-150)
== END ==
PROVIDERS: PCP Family Medicine; Referring Provider Family Medicine; Visit Provider Family Medicine
DX: Z00.00 Encounter for general adult medical examination without abnormal findings (principal); G47.00 Insomnia, unspecified
CPT/HCPCS: 36415; 80053; 80061; 85025

== ENCOUNTER → 2023-11-24 14:24 | Outpatient (CLI) | payer BC, SELFPAY ==
--- NOTE | 2023-11-24 14:25 | DI.CT.S_ITS ---
PROCEDURE: CT CHEST WO CON INDICATIONS: nodule follow up TECHNIQUE: Noncontrast 5 mm thick sections acquired from the pulmonary apices to the posterior costophrenic angles. 1 mm lung window, 5 mm thick coronal and sagittal and 7 mm axial MIP reformats were then acquired. For radiation dose reduction, the following was used: automated exposure control, adjustment of mA and/or kV according to patient size. COMPARISON: [facility], CT, CT ABDOMEN PELVIS W CON, 03/31/2019, 19:36. [facility], CT, CT CHEST WO CON, 05/31/2021, 12:10. FINDINGS: Image quality: Diagnostic. Lower Neck: No enlarged lymph nodes. Thyroid: No thyroid nodules which require sonographic follow up, per consensus guidelines. Axillae: No enlarged lymph nodes. Chest Wall: Unremarkable. Bones: Age-appropriate bony degenerative changes are seen. Lungs and Pleura: As previously demonstrated, there is a 3 mm perifissural nodule seen on the right within the right lower lobe, as on series 3, image 212, which is unchanged compared to the prior examination. No additional significant pulmonary nodules can be seen. No focal infiltrates are seen. No pneumothorax or pleural effusions are seen. Heart: Heart size is normal. No pericardial effusion. Thoracic Vessels: The aorta and pulmonary arteries demonstrate normal size. Mediastinum and Camila: No enlarged lymph nodes. Esophagus: No wall thickening. No hiatal hernia. Upper Abdomen: Visualized upper abdomen solid organs and bowel loops appear normal. IMPRESSION: Stable 3 mm nodule seen adjacent to the fissure within the right lower lobe. This nodule is considered to be benign and no specific imaging follow-up is recommended. Dictated by: Sergio Galan M.D. on 11/24/2023 at 16:22 Approved by: Sergio Galan M.D. on 11/24/2023 at 16:26
== END ==
PROVIDERS: PCP Family Medicine; Referring Provider Family Medicine; Visit Provider Family Medicine
DX: R93.89 Abnormal findings on diagnostic imaging of other specified body structures (principal); R91.1 Solitary pulmonary nodule
CPT/HCPCS: 71250

== ENCOUNTER → 2024-06-08 08:27 | Outpatient (CLI) | payer OTHER, SELFPAY ==
[2024-06-08 09:05] LABS: Add Manual Diff / Slide Review NO; Basophils Absolute Auto 0 /uL (0-100); Basophils Percent Auto 0.4 % (0-2); Eosinophils Absolute Auto 200 /uL (0-450); Eosinophils Percent Auto 2.2 % (2-4); Hematocrit 49.5 % (41-53); Lymphocytes Absolute Auto 2400 /uL (1100-4500); Lymphocytes Percent Auto 28.9 % (25-40); Mean Corpuscular HGB Conc 34.3 % (30-36); Mean Corpuscular Hemoglobin 32.1 PG (26-34); Mean Corpuscular Volume 93.5 fL (80-100); Monocytes Absolute Auto 700 /uL (0-900); Neutrophils Absolute Auto 4800 /uL (1500-7000); Neutrophils Percent Auto 59.5 % (50-75); Platelet Count 205 X10^3/uL (150-400); Red Blood Cell Count 5.29 X10^6/uL (4.5-5.9); Red Cell Distribution Width 13.4 % (11.6-14.8); White Blood Cell Count 8.1 X10^3/uL (4.5-11.0)
[2024-06-08 09:29] LABS: Alanine Aminotransferase 19 IU/L (<50); Albumin 4.6 g/dL (3.5-5.0); Albumin Globulin Ratio 1.8 (1.0-2.8); Alkaline Phosphatase 56 U/L (38-126); Aspartate Aminotransferase 29 IU/L (17-59); BUN Creatinine Ratio 14.5 (6-22); Bilirubin Total 1.2 mg/dL (0.2-1.3); Blood Urea Nitrogen 17 mg/dL (9-20); Calcium 9.7 mg/dL (8.4-10.2); Carbon Dioxide 30 mmol/L (22-32); Chloride 104 mmol/L (98-107); Cholesterol 168 mg/dL (140-199); Estimated Glomerular Filt Rate > 60 mL/min (>60); Globulin 2.6 g/dL (1.7-4.1); Glucose 95 mg/dL (70-100); HDL Cholesterol 78 mg/dL (40-60); HEMOLYSIS < 15 (0-50); LDL Cholesterol Calculated 63 mg/dL (<100); Lipase 1529 U/L (23-300); Potassium 3.9 mmol/L (3.4-5.1); Sodium 139 mmol/L (137-145); Total Protein 7.2 g/dL (6.3-8.2); Triglycerides 135 mg/dL (35-150)
[2024-06-13 16:07] LABS: Percent Free Testosterone 3.46 % (1.50-4.20); Testosterone Free 28.94 ng/dL (5.00-21.00); Testosterone Total 836.3 ng/dL (264.0-916.0)
== END ==
PROVIDERS: PCP Family Medicine; Referring Provider Family Medicine; Visit Provider Family Medicine
DX: Z00.00 Encounter for general adult medical examination without abnormal findings (principal); G47.00 Insomnia, unspecified; Z90.49 Acquired absence of other specified parts of digestive tract; R10.9 Unspecified abdominal pain
CPT/HCPCS: 36415; 80053; 80061; 83690; 84402; 84403; 85025